=== PATIENT | female | born 1960 | race Caucasian/White ===

== ENCOUNTER → 2018-09-12 | Outpatient (CLI) | payer MEDICARE, MEDICAID ==
[~2018-09-12] MED LIST: ACET325T49 PO; ARIP2TAB11 PO; ASPI-983 PO; ATOR80TA76 PO; BENZ200C51 PO; BUTA1CAP41 PO; CALC-250 PO; CARV25TA PO; CITA-105 PO; FLUT1DIS26 IH; FURO20TA4 PO; GABA-486 PO; IBUP-1780 PO; INSU100I29 SQ; INSU100V5 SQ; IPRA3AMP19 IH; LISI-552 PO; LISI2.5T PO; MAGNESIUM PO; METF500T8 PO; MTF500T PO; OMG1KC PO; POTA20TA8 PO; POTASSIUM PO; TICA90TA PO; TRZ100T PO; VORT20TA PO
== END ==
LOC: CARD 12:48
PROVIDERS: ATTEND Physician Assistant
DX: I25.10 Atherosclerotic heart disease of native coronary artery without angina pectoris (principal); R07.89 Other chest pain; E11.9 Type 2 diabetes mellitus without complications; I10 Essential (primary) hypertension; E78.5 Hyperlipidemia, unspecified
CPT/HCPCS: 93306

== ENCOUNTER → 2020-12-10 | Outpatient (CLI) | payer MEDICARE, MEDICAID ==
[~2020-12-10] MED LIST changes: -ARIP2TAB11 PO; +ARIP2TAB20 PO; +ASPI-1238 PO; -ASPI-983 PO; -LISI-552 PO; +LISI20TA26 PO; +METF-865 PO; -METF500T8 PO
--- NOTE | 2020-12-10 15:19 | Diagnostic Imaging Report ---
PROCEDURE: CT head without contrast. TECHNIQUE: Multiple contiguous axial images were obtained through the brain without the use of intravenous contrast. Auto Exposure Controls were utilized during the CT exam to meet ALARA standards for radiation dose reduction. INDICATION: Drooling and dysphasia "left eye issues". COMPARISON: Head CT performed in 2014 as well as correlated with brain MRI performed in 2015. FINDINGS: There is no intracerebral hemorrhage hydrocephalus, edema, mass, mass effect nor evidence for an elevation of the intracerebral pressures. The mastoids and middle ear cavities are clear. The calvarium is unremarkable. The paranasal sinuses are clear. Some rightward nasal septal spurring and deviation as well as alejandrina bullosa formation in the left middle nasal turbinate, chronic. The paranasal sinuses, themselves, are clear. Orbital contents appear symmetric, stable and unremarkable. IMPRESSION: Stable normal CT head. Dictated by: Dictated on workstation # [id number]
== END ==
LOC: RAD 14:15
PROVIDERS: ATTEND Nurse Practitioner Family
DX: R13.10 Dysphagia, unspecified (principal)
CPT/HCPCS: 70450

== ENCOUNTER → 2020-12-24 | Outpatient (CLI) | payer MEDICARE, MEDICAID ==
--- NOTE | 2020-12-24 14:59 | Diagnostic Imaging Report ---
INDICATION: Dysphagia. EXAMINATION: Procedure was performed in conjunction with Speech Pathology. Video fluoroscopy was performed during the swallowing of barium in multiple consistencies. A total of 2 minutes and 34 seconds of fluoroscopic time was utilized. Patient ingested thin liquid as well as nectar, honey, puree and mechanical soft consistency. Patient also ingested ground meat and cracker consistency. There was an episode of deep laryngeal penetration during the swallowing of thin liquid. No aspiration was observed. There is moderate vallecular residue noted with all consistencies with difficulty clearing. IMPRESSION: Single episode of penetration with thin liquid. No aspiration was observed. A moderate vallecular residue is noted. Dictated by: Dictated on workstation # [id number]
== END ==
LOC: RAD 09:25
PROVIDERS: ATTEND Surgery
DX: R13.10 Dysphagia, unspecified (principal)
CPT/HCPCS: 74230

== ENCOUNTER 2021-02-18 09:59 | Emergency (ER) | payer MEDICARE, MEDICAID ==
[~2021-02-18] VITALS: Ht 165 cm; Wt 61.2 kg
--- NOTE | 2021-02-18 10:41 | ED Upper Extremity ---
General Chief Complaint: Trauma-Non Activation Stated Complaint: FELL AT HOME/ PAIN IN LEFT SHOULDER Nursing Triage Note: pt reports going outside on her front porch last evening when she fell down two steps and onto the concrete. pt denies loc or hitting head. pt does have abrasions to bridge of nose and left cheek. pt is unsure how she aquired these abrasions. denies having her glasses on at time of fall. pt reports left shoulder pain, rib pain, knee pain, and pain when taking a breath. Nursing Sepsis Screen: No Definite Risk Source: patient Exam Limitations: no limitations History of Present Illness Date Seen by Provider: Feb 18, 2021 Time Seen by Provider: 10:30 Initial Comments Patient is a 60-year-old female who presents to the emergency department today with a chief complaint of left shoulder pain and left sided chest discomfort after a fall last night off her porch. Patient states that she thinks she misse d stepped and fell approximately 2 steps off of her porch onto the concrete below. She did not hit her head or have a loss of consciousness. Patient is complaining primarily of left proximal shoulder pain. She states it hurts to AB duct and extend her left shoulder. Patient denies any numbness tingling or weakness to the left hand. She denies pain to the hand, pain to the wrist pain to the forearm or elbow. She states she is also having pain with deep breath in her left lateral chest. She does have a cough. No recent fevers or chills. No other complaints of illness or injury. All other review of systems reviewed and negative except as stated above. Location Injury Occurred: front porch Onset: yesterday Severity: severe Pain/Injury Location: left shoulder Method of Injury: fell Modifying Factors: Improves With Immobilization Allergies and Home Medications Allergies Coded Allergies: Tetanus Vaccines & Toxoid (Verified Adverse Reaction, Unknown, 05/25/14) ciprofloxacin (Verified Adverse Reaction, Unknown, 05/25/14) lovastatin (Verified Adverse Reaction, Unknown, 07/10/13) Home Medications Acetaminophen 325 Mg Tablet, 650 MG PO Q4H PRN for MILD PAIN Prescribed by: LUIGI ERAZO on 06/27/15814 Aripiprazole 2 Mg Tablet, 2 MG PO DAILY, (Reported) Aspirin 81 Mg Tablet.dr, 81 MG PO DAILY Prescribed by: LUIGI ERAZO on 06/27/15814 Atorvastatin Calcium 80 Mg Tablet, 80 MG PO HS Prescribed by: LUIGI ERAZO on 06/27/15814 Benzonatate 200 Mg Capsule, 200 MG PO TID PRN for COUGH, (Reported) Carvedilol 25 Mg Tablet, 25 MG PO BID, (Reported) Cholecalciferol 5,000 Unit Capsule, 5,000 UNIT PO DAILY, (Reported) Furosemide 20 Mg Tablet, 20 MG PO DAILY PRN for PRN, (Reported) Gabapentin 100 Mg Capsule, 100 MG PO DAILY PRN for SEVERE HEADACHE, (Reported) NEW MED: HAS NOT BEEN PICKED UP YET; FILLED 06/24/15 Insulin Detemir 100 Unit/1 Ml Insuln.pen, 20 UNITS SQ BID, (Reported) Lisinopril 20 Mg Tablet, 40 MG PO DAILY Prescribed by: LUIGI ERAZO on 06/27/15814 Metformin HCl 500 Mg Tab.er.24h, 1,000 MG PO BID, (Reported) Equality 3 Polyunsat Fatty Acids 1,000 Mg Cap, 1,000 MG PO BID WITH MEALS Prescribed by: LUIGI ERAZO on 06/27/15814 Potassium Chloride 20 Meq Tab.er.prt, 20 MEQ PO DAILY@0700 Prescribed by: LUIGI ERAZO on 06/27/15814 Ticagrelor 90 Mg Tablet, 90 MG PO BID Prescribed by: LUIGI ERAZO on 06/27/15814 Vortioxetine Hydrobromide 20 Mg Tablet, 20 MG PO DAILY, (Reported) LAST FILLED 05/15/15 [Potassium&Magnesium] , 250 MG PO DAILY, (Reported) Patient Home Medication List Home Medication List Reviewed: Yes Review of Systems Constitutional: see HPI EENTM: no symptoms reported Respiratory: cough Cardiovascular: no symptoms reported Gastrointestinal: no symptoms reported Genitourinary: no symptoms reported Musculoskeletal: joint pain (Left shoulder pain) Skin: no symptoms reported All Other Systems Reviewed Negative Unless Noted: Yes Past Rtegdbd-Sskxpp-Jfuocr Hx Patient Social History Alcohol Use: Denies Use Drug of Choice: Marijuana-daily Smoking Status: Current Everyday Smoker Type Used: Cigarettes Recent Infectious Disease Expo: No Recent Hopitalizations: No Immunizations Up To Date Tetanus Booster (TDap): Unknown PED Vaccines UTD: Yes Date of Pneumonia Vaccine: Jul 04, 2013 Date of Influenza Vaccine: Jun 15, 2015 Seasonal Allergies Seasonal Allergies: No Past Medical History Surgeries: Yes Gallbladder, Orthopedic, Tubal Ligation Respiratory: Yes Pneumonia, COPD Cardiac: Yes (PRE-ECLAMPSIA, CHF) Hypertension Neurological: Yes (Borrego's palsy, tardive dyskinesia) Stroke Reproductive Disorders: No (no menses this yr; very irregular for yrs) Female Reproductive Disorders: Endometriosis Sexually Transmitted Disease: No HIV/AIDS: No Gastrointestinal: No Musculoskeletal: No (collar bone) Fractures Endocrine: Yes (Type II) Diabetes, Insulin dep HEENT: No Loss of Vision: Denies Hearing Impairment: Denies Cancer: No Psychosocial: Yes ("hate Trazadone so use Marijuana") Sleep Difficulties, Anxiety, Depression Integumentary: No Blood Disorders: No Adverse Reaction/Blood Tranf: No Family Medical History Cardiovascular disease 19 FATHER G8 BROTHER G8 SISTER FH: multiple myeloma Physical Exam Vital Signs Vital Signs - First Documented 02/18/21 10:05 Temp 35.0 Pulse 86 Resp 12 B/P (MAP) 136/92 (107) Pulse Ox 96 Capillary Refill : Less Than 3 Seconds Height, Weight, BMI Height: 5'5.00" Weight: 154lbs. 8.0oz. 70.969944my; 22.00 BMI Method:Stated General Appearance: WD/WN, no apparent distress HEENT: PERRL/EOMI Neck: normal inspection Cardiovascular: regular rate, rhythm Respiratory: chest non-tender, lungs clear, normal breath sounds, no respi ratory distress Gastrointestinal: non tender, soft Back: normal inspection Shoulder: normal inspection, limited ROM, pain, soft tissue tenderness (Anterior and lateral left shoulder) Elbow/Forearm: normal inspection, non-tender, no evidence of injury, normal ROM, Right Wrist: Yes normal inspection, Yes non-tender, Yes no evidence of injury, Yes normal ROM Hand: normal inspection, non-tender, no evidence of injury, normal ROM Neurologic/Psychiatric: alert, normal mood/affect, oriented x 3 Progress/Results/Core Measures Results/Orders My Orders Orders - PEE DUARTE MD Shoulder, Left, 3 Views (02/18/21 10:36) Chest 1 View, Ap/Pa Only (02/18/21 10:41) Vital Signs/I&O 02/18/21 10:05 Temp 35.0 Pulse 86 Resp 12 B/P (MAP) 136/92 (107) Pulse Ox 96 Blood Pressure Mean: 107 Diagnostic Imaging Diagonstic Imaging: Xray Comments [facility], [place] NAME: ITALIA LEMONS [facility] REC#: [id number] PT STATUS: REG ER : 1960 PHYSICIAN: PEE DUARTE MD ADMIT DATE: 02/18/21/ER Draft Date of Exam:02/18/21 SHOULDER, LEFT, 3 VIEWS INDICATION: Left shoulder pain after falling down stairs. FINDINGS: 3 views. The glenohumeral joint is in good alignment. Articulating surfaces are smooth. AC joint shows good alignment. There is distal clavicular fracture present without significant displacement. IMPRESSION: Distal left clavicular fracture without separation of the AC joint. Glenohumeral joint appears normal. Dictated on workstation # [id number] Dict: 02/18/21 1107 Trans: 02/18/21 1110 [id number] Interpreted by: RICARDO PINZON MD Electronically signed by: [facility] [place] [place] NAME: ITALIA LEMONS [facility] REC#: [id number] PT STATUS: REG ER : 1960 PHYSICIAN: PEE DUARTE MD ADMIT DATE: 02/18/21/ER Signed Date of Exam:02/18/21 CHEST 1 VIEW, AP/PA ONLY INDICATION: Chest pain. Portable chest 11:05 AM FINDINGS: Heart size and pulmonary vascularity are normal. Lungs are clear. There are no effusions or pneumothoraces. IMPRESSION: Negative chest. Dictated by: Dictated on workstation # [id number] Dict: 02/18/21 1106 Trans: 02/18/21 1108 [id number] Interpreted by: DAISHA LAMBERT MD Electronically signed by: DIASHA LAMBERT MD 02/18/21 110 Departure Impression Primary Impression: Closed left clavicular fracture Qualified Codes: S42.035A - Nondisplaced fracture of lateral end of left clavicle, initial encounter for closed fracture Disposition: 01 HOME, SELF-CARE Condition: Stable Departure-Patient Inst. Decision time for Depature: 11:38 Referrals: [facility] (PCP/Family) Primary Care Physician SHARA FULLER MD Patient Instructions: Clavicle Fracture Add. Discharge Instructions: ,Wear the sling until you follow-up with [facility] or with Dr. Fuller. You may have to wear the sling for 4 to 6 weeks. I have given you the contact information for Dr. FULLER you should call the orthopedic clinic on Sunday for a follow-up appointment. Take the hydrocodone 1 pill every 4-6 hours as needed for pain. You can alternate this medication with [id number] Tylenol. Do not take Tylenol with the hydrocodone. Come back to the emergency room for any increased pain that is not controlled by the pain medicine, fever, swelling or any other emergent concerning symptoms. Scripts Hydrocodone/Acetaminophen (Hydrocodone-Acetamin 5-325 mg) 1 Each Tablet 1 TAB PO Q6H PRN for PAIN-MODERATE (5-7), #12 TAB Prov: PEE DUARTE MD 02/18/21 PEE DUARTE MD Feb 18, 2021 10:41
--- NOTE | 2021-02-18 11:07 | Diagnostic Imaging Report ---
INDICATION: Chest pain. Portable chest 11:05 AM FINDINGS: Heart size and pulmonary vascularity are normal. Lungs are clear. There are no effusions or pneumothoraces. IMPRESSION: Negative chest. Dictated by: Dictated on workstation # [id number]
--- NOTE | 2021-02-18 11:10 | Diagnostic Imaging Report ---
INDICATION: Left shoulder pain after falling down stairs. FINDINGS: 3 views. The glenohumeral joint is in good alignment. Articulating surfaces are smooth. AC joint shows good alignment. There is distal clavicular fracture present without significant displacement. IMPRESSION: Distal left clavicular fracture without separation of the AC joint. Glenohumeral joint appears normal. Dictated by: Dictated on workstation # [id number]
[2021-02-18] MEDS ORDERED: ACHD5005 PO (11:40)
[2021-02-18 11:46] VITALS: BP 133/72
== END 2021-02-18 11:46 | disposition home or self-care (01) ==
LOC: EDUNIT# 09:59 → ER 10:03
DX: S42.032A Displaced fracture of lateral end of left clavicle, initial encounter for closed fracture (principal); I11.0 Hypertensive heart disease with heart failure; I50.9 Heart failure, unspecified; E11.9 Type 2 diabetes mellitus without complications; J44.9 Chronic obstructive pulmonary disease, unspecified; F41.9 Anxiety disorder, unspecified; F32.9 Major depressive disorder, single episode, unspecified; F17.210 Nicotine dependence, cigarettes, uncomplicated; Z79.82 Long term (current) use of aspirin; Z79.4 Long term (current) use of insulin; Z79.899 Other long term (current) drug therapy; W17.89XA Other fall from one level to another, initial encounter; Y92.018 Other place in single-family (private) house as the place of occurrence of the external cause
CPT/HCPCS: 71045; 73030

== ENCOUNTER 2021-04-03 09:34 | Emergency (ER) | payer MEDICARE, MEDICAID ==
[~2021-04-03] VITALS: Ht 165 cm; Wt 59.0 kg
[~2021-04-03 09:34] MED LIST changes: +ACHD5005 PO
[2021-04-03] MEDS ORDERED: TETANUS IMMUNE GLOBULIN 250 UNIT/ML SYR IM ONE (10:15)
--- NOTE | 2021-04-03 11:08 | ED Fall/Injury ---
General Chief Complaint: Trauma-Non Activation Stated Complaint: FALL/L SIDE RIB PAIN Nursing Triage Note: AMB TO ROOM PATIENT REPORTS THAT SHE FELL ON HIT L RIBS, L SIDE OF HER FACE C/O NECK PAIN ABRASION TO R KNEE AND R FOREARM. 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 C/O PAIN TO RIGHT FOREHEAD C/O POSTERIOR NECK PAIN C/O PAIN TO LEFT RIBS NO SHORTNESS OF BREATH, BUT HURTS TO BREATHE OR COUGH OR MOVE. RATES PAIN 2/10 AT REST, 8/10 WITH COUGH OR MOVEMENT C/O NAUSEA, NO VOMITING NO ABDOMINAL PAIN NO BACK PAIN NO PARESTHESIAS OR MOTOR DEFICITS HAS ABRASION TO RIGHT FOREARM AND RIGHT KNEE--DENIES BONY PAIN TO THESE AREAS. DENIES EXTREMITY PAIN DENIES DIZZINESS DENIES VISION CHANGES, BUT IS SUPPOSED TO WEAR GLASSES, BUT ARRIVES WITHOUT THEM. HAS NOT SOUGHT CARE UNTIL TODAY SYMPTOMS NO DIFFERENT TODAY HAS NOT TAKEN ANYTHING FOR PAIN PT SMOKES 1 1/2 PPD PT HAS COPD, BUT DOES NOT TAKE ANY MEDICATIONS FOR IT HAS HISTORY OF CAD WITH STENT X 1 PT IS DIABETIC, DOES NOT CHECK BLOOD SUGAR PCP: [facility] [place] Allergies and Home Medications Allergies Coded Allergies: Tetanus Vaccines & Toxoid (Verified Adverse Reaction, Unknown, 05/25/14) ciprofloxacin (Verified Adverse Reaction, Unknown, 05/25/14) lovastatin (Verified Adverse Reaction, Unknown, 07/10/13) Home Medications Acetaminophen 325 Mg Tablet, 650 MG PO Q4H PRN for MILD PAIN Prescribed by: LUIGI ERAZO on 06/27/15814 Aripiprazole 2 Mg Tablet, 2 MG PO DAILY, (Reported) Aspirin 81 Mg Tablet.dr, 81 MG PO DAILY Prescribed by: LUIGI ERAZO on 06/27/15814 Atorvastatin Calcium 80 Mg Tablet, 80 MG PO HS Prescribed by: LUIGI ERAZO on 06/27/15814 Benzonatate 200 Mg Capsule, 200 MG PO TID PRN for COUGH, (Reported) Carvedilol 25 Mg Tablet, 25 MG PO BID, (Reported) Cholecalciferol 5,000 Unit Capsule, 5,000 UNIT PO DAILY, (Reported) Cyclobenzaprine HCl 10 Mg Tablet, 10 MG PO Q8H PRN for SPASMS Prescribed by: AZUCENA FRANKLIN on 04/03/21 1210 Furosemide 20 Mg Tablet, 20 MG PO DAILY PRN for PRN, (Reported) Gabapentin 100 Mg Capsule, 100 MG PO DAILY PRN for SEVERE HEADACHE, (Reported) NEW MED: HAS NOT BEEN PICKED UP YET; FILLED 06/24/15 Hydrocodone/Acetaminophen 1 Each Tablet, 1 TAB PO Q6H PRN for PAIN-MODERATE (5- 7) Prescribed by: PEE DUARTE on 02/18/21 1141 Insulin Detemir 100 Unit/1 Ml Insuln.pen, 20 UNITS SQ BID, (Reported) Lisinopril 20 Mg Tablet, 40 MG PO DAILY Prescribed by: LUIGI ERAZO on 06/27/15 08 Metformin HCl 500 Mg Tab.er.24h, 1,000 MG PO BID, (Reported) Naproxen 500 Mg Tablet.dr, 500 MG PO BID Prescribed by: AZUCENA FRANKLIN on 04/03/21 1210 Nitrofurantoin Monohyd/M-Cryst 100 Mg Capsule, 1 TAB PO BID Prescribed by: AZUCENA FRANKLIN on 04/03/21 1212 [place] 3 Polyunsat Fatty Acids 1,000 Mg Cap, 1,000 MG PO BID WITH MEALS Prescribed by: LUIGI ERAZO on 06/27/15814 Potassium Chloride 20 Meq Tab.er.prt, 20 MEQ PO DAILY@0700 Prescribed by: LUIGI ERAZO on 06/27/15 08 Ticagrelor 90 Mg Tablet, 90 MG PO BID Prescribed by: LUIGI ERAZO on 06/27/15814 Tramadol HCl 50 Mg Tablet, 50 MG PO Q4H Prescribed by: AZUCENA FRANKLIN on 04/03/21 1210 Vortioxetine Hydrobromide 20 Mg Tablet, 20 MG PO DAILY, (Reported) LAST FILLED 05/15/15 [Potassium&Magnesium] , 250 MG PO DAILY, (Reported) Patient Home Medication List Home Medication List Reviewed: Yes Review of Systems Review of Systems Constitutional: no symptoms reported Eyes: No Symptoms Reported Ears, Nose, Mouth, Throat: no symptoms reported Respiratory: see HPI Cardiovascular: see HPI Gastrointestinal: see HPI; No abdominal pain; nausea; No vomiting Genitourinary: no symptoms reported Musculoskeletal: see HPI Skin: see HPI Psychiatric/Neurological: No Symptoms Reported; Denies Headache, Denies Numbness, Denies Paresthesia, Denies Seizure, Denies Tingling, Denies Weakness Past Kabombu-Nnkrtm-Nzvmre Hx Patient Social History Tobacco Use?: Yes (SMOKES 1 1/2 PPD) Tobacco type used: Cigarettes Substance use?: No Alcohol Use?: No Immunizations Up To Date Tetanus Booster (TDap): Unknown PED Vaccines UTD: Yes Seasonal Allergies Seasonal Allergies: No Past Medical History Surgery/Hospitalization HX: BILATERAL TUBAL LIGATION Surgeries: Yes Gallbladder, Orthopedic, Tubal Ligation Respiratory: Yes Pneumonia, COPD Cardiac: Yes (PRE-ECLAMPSIA, CHF) Hypertension Neurological: Yes (Borrego's palsy, tardive dyskinesia) Stroke Reproductive Disorders: No (no menses this yr; very irregular for yrs) Female Reproductive Disorders: Endometriosis Sexually Transmitted Disease: No HIV/AIDS: No Gastrointestinal: No Musculoskeletal: No (collar bone) Fractures Endocrine: Yes (Type II) Diabetes, Insulin dep HEENT: No Loss of Vision: Denies Hearing Impairment: Denies Cancer: No Psychosocial: Yes ("hate Trazadone so use Marijuana") Sleep Difficulties, Anxiety, Depression Integumentary: No Blood Disorders: No Adverse Reaction/Blood Tranf: No Family Medical History Cardiovascular disease 19 FATHER G8 BROTHER G8 SISTER FH: multiple myeloma Physical Exam Vital Signs Vital Signs - First Documented 04/03/21 04/03/21 10:21 10:50 Temp 36.7 Pulse 81 Resp 18 B/P (MAP) 130/90 (103) Pulse Ox 90 O2 Delivery Room Air O2 Flow Rate 2.00 Capillary Refill : Less Than 3 Seconds Height, Weight, BMI Height: 5'5.00" Weight: 154lbs. 8.0oz. 70.939208pl; 21.00 BMI Method:Stated General Appearance: no apparent distress, thin, other (DIRTY, UNKEMPT, MULTIPLE HOLES / CIGARETTE LANDEROS IN CLOTHING. ) HEENT: PERRL/EOMI, normal ENT inspection, TMs normal, pharynx normal, other (POOR DENTITION; MINOR ABRASION TO RIGHT FOREHEAD WITH TENDERNESS) Neck: tender lateral, tender midline Cardiovascular: regular rate, rhythm, no murmur Respiratory: normal breath sounds, no respiratory distress, other (TENDERNESS TO LEFT ANTERIOR AND LATERAL CHEST/RIB AREA. NO EXTERNAL EVIDENCE OF TRAUMA. NO CREPITANCE OR SUB Q AIR. ) Gastrointestinal: normal bowel sounds, non tender, soft Back: normal inspection, no CVA tenderness, no vertebral tenderness Extremities: normal range of motion, non-tender, no pedal edema, no calf tenderness, normal capillary refill, other (MINOR ABRASION TO RIGHT MID FOREARM AND RIGHT KNEE. NO BONY TENDERNESS TO EXTREMITIES) Neurologic/Psychiatric: contract programmer II-XII nml as tested, no motor/sensory deficits, alert, normal mood/affect, oriented x 3 Skin: normal color, warm/dry Charlie Coma Score Best Eye Response: (4) Open Spontaneously Best Verbal Response: (5) Oriented Best Motor Response: (6) Obeys Commands Charlie Total: 15 Progress/Results/Core Measures Results/Orders Lab Results Laboratory Tests Test 04/03/21 10:01 04/03/21 11:04 04/03/21 11:15 Range/Units B-Type Natriuretic Peptide 12.6 <100.0 PG/ML White Blood Count 9.6 4.3-11.0 10^3/uL Red Blood Count 4.52 3.80-5.11 10^6/uL Hemoglobin 14.3 11.5-16.0 g/dL Hematocrit 42 35-52 % Mean Corpuscular Volume 94 80-99 fL Mean Corpuscular Hemoglobin 32 25-34 pg Mean Corpuscular Hemoglobin Concent 34 32-36 g/dL Red Cell Distribution Width 13.6 10.0-14.5 % Platelet Count 160 130-400 10^3/uL Mean Platelet Volume 11.4 9.0-12.2 fL Immature Granulocyte % (Auto) 0 % Neutrophils (%) (Auto) 63 42-75 % Lymphocytes (%) (Auto) 27 12-44 % Monocytes (%) (Auto) 8 0-12 % Eosinophils (%) (Auto) 2 0-10 % Basophils (%) (Auto) 1 0-10 % Neutrophils # (Auto) 6.1 1.8-7.8 10^3/uL Lymphocytes # (Auto) 2.6 1.0-4.0 10^3/uL Monocytes # (Auto) 0.7 0.0-1.0 10^3/uL Eosinophils # (Auto) 0.1 0.0-0.3 10^3/uL Basophils # (Auto) 0.1 0.0-0.1 10^3/uL Immature Granulocyte # (Auto) 0.0 0.0-0.1 10^3/uL Sodium Level 144 135-145 MMOL/L Potassium Level 3.8 3.6-5.0 MMOL/L Chloride Level 105 98-107 MMOL/L Carbon Dioxide Level 27 21-32 MMOL/L Anion Gap 12 5-14 MMOL/L Blood Urea Nitrogen 11 7-18 MG/DL Creatinine 0.75 0.60-1.30 MG/DL Estimat Glomerular Filtration Rate > 60 BUN/Creatinine Ratio 15 Glucose Level 147 H 70-105 MG/DL Calcium Level 9.0 8.5-10.1 MG/DL Corrected Calcium 9.1 8.5-10.1 MG/DL Total Bilirubin 0.6 0.1-1.0 MG/DL Aspartate Amino Transf (AST/SGOT) 11 5-34 U/L Alanine Aminotransferase (ALT/SGPT) 14 0-55 U/L Alkaline Phosphatase 104 40-136 U/L Troponin I < 0.028 <0.028 NG/ML Total Protein 6.2 L 6.4-8.2 GM/DL Albumin 3.9 3.2-4.5 GM/DL Urine Color YELLOW Urine Clarity CLEAR Urine pH 5.5 5-9 Urine Specific [place] >=1.030 1.016-1.022 Urine Protein TRACE H NEGATIVE Urine Glucose (UA) NEGATIVE NEGATIVE Urine Ketones NEGATIVE NEGATIVE Urine Nitrite POSITIVE H NEGATIVE Urine Bilirubin NEGATIVE NEGATIVE Urine Urobilinogen 0.2 < = 1.0 MG/DL Urine Leukocyte Esterase TRACE H NEGATIVE Urine RBC (Auto) NEGATIVE NEGATIVE Urine RBC NONE /HPF Urine WBC 0-2 /HPF Urine Squamous Epithelial Cells 10-25 H /HPF Urine Crystals NONE /LPF Urine Bacteria LARGE H /HPF Urine Casts NONE /LPF Urine Mucus NEGATIVE /LPF Urine Yeast FEW H /HPF Urine Culture Indicated YES My Orders Orders - AZUCENA FRANKLIN DO Tetanus Immune Globulin Inj (Baytet Inje (04/03/21 10:15) Ct Head/Face/Cervical Wo (04/03/21 10:01) Chest 1 View, Ap/Pa Only (04/03/21 10:01) BNP (04/03/21 10:01) Cbc With Automated Diff (04/03/21 10:01) Comprehensive Metabolic Panel (04/03/21 10:01) Ua Culture If Indicated (04/03/21 10:01) Ct Chest/Abdomen/Pelvis W (04/03/21 10:01) Troponin I (04/03/21 10:01) Ed Iv/Invasive Line Start (04/03/21 10:01) O2 (04/03/21 10:01) Monitor-Rhythm Ecg Trace Only (04/03/21 10:01) Urine Culture (04/03/21 11:15) Iohexol Injection (Omnipaque 350 Mg/Ml 1 (04/03/21 11:45) Received Contrast (Hold Metformin- Contr (04/03/21 11:45) Ns (Ivpb) (Sodium Chloride 0.9% Ivpb Bag (04/03/21 11:45) Ketorolac Injection (Toradol Injection) (04/03/21 12:15) Medications Given in ED Current Medications Medications Dose Ordered Sig/Veronica Route Start Time Stop Time Status Last Admin Dose Admin Iohexol 100 ml ONCE ONCE IV 04/03/21 11:45 04/03/21 11:46 DC 04/03/21 11:43 100 ML Ketorolac Tromethamine 30 mg ONCE ONCE IVP 04/03/21 12:15 04/03/21 12:16 DC 04/03/21 12:17 30 MG Sodium Chloride 100 ml ONCE ONCE IV 04/03/21 11:45 04/03/21 11:46 DC 04/03/21 11:43 80 ML Tetanus Immune Globulin 250 unit ONCE ONCE IM 04/03/21 10:15 04/03/21 10:16 DC 04/03/21 10:44 250 UNIT Vital Signs/I&O 04/03/21 04/03/21 04/03/21 10:21 10:50 12:51 Temp 36.7 Pulse 81 90 Resp 18 18 B/P (MAP) 130/90 (103) 151/96 Pulse Ox 90 90 92 O2 Delivery Room Air Nasal Cannula Room Air O2 Flow Rate 2.00 Blood Pressure Mean: 103 Progress Progress Note : Progress Note MARKED DELAY ON OBTAINING IV AND LAB, AND ALSO WITH OBTAINING RADIOLOGICAL STUDIES DUE TO THIS Diagnostic Imaging Comments CXR--NO ACUTE PROCESS, PER RADIOLOGIST REPORT AT 1158 CT HEAD/MAXILLOFACIALS/CERVICAL SPINE--PER RADIOLOGIST REPORT AT 1158 FINDINGS: CT head: No large acute territorial ischemia, mass, or hemorrhage. No midline shift or mass effect. The ventricles, cortical sulci, and basilar cisterns are patent and unremarkable. The calvarium is intact. A small amount of retained secretions are seen in the antrum of the left maxillary sinus. Retained secretions are seen in the left ethmoid sinuses. Mastoid effusion is seen in the right. CT face: No acute facial fractures are visualized. The mandible, zygomatic arches, and pterygoid plates are intact. The bilateral TMJ demonstrate normal articulation. No nasal bone fractures. The bony nasal septum is deviated to the right without fracture. Rita bullosa of the left middle turbinate is noted. The globes and orbits are symmetric and unremarkable. No evidence of orbital rim fracture. Scattered dental caries are noted. CT cervical spine: No acute fracture or dislocation is seen in the cervical spine. No focal osseous lesions. Vertebral body heights are well-maintained. The craniocervical junction is well-maintained. Mild degenerative changes are seen in the cervical spine with disc osteophyte complexes and uncovertebral arthropathy. Soft tissues of the neck are unremarkable. IMPRESSION: 1. No hemorrhage or focal intra-axial mass. No CT evidence of large acute territorial ischemia. 2. No acute fracture or dislocation in the cervical spine. 3. No acute facial fractures. 4. Small right mastoid effusion with small amount of retained secretions in the left maxillary and ethmoid sinuses. CT CHEST/ABDOMEN/PELVIS--PER RADIOLOGIST REPORT AT 1206 FINDINGS: CT CHEST: The heart size is within normal limits. Small pericardial effusion is present. The thoracic aorta is unremarkable without evidence of aneurysm or dissection. There is no mediastinal, hilar, or axillary lymphadenopathy. The lungs demonstrate no pulmonary nodules or masses. There are no focal areas of consolidation. Small amount of dependent atelectasis is seen in the lung bases. No central endobronchial obstructing lesions are identified. There are no pleural effusions or pneumothorax. The osseous structures demonstrate no acute abnormalities. CT ABDOMEN AND PELVIS: The abdominal aorta has a normal appearance without evidence of dissection or aneurysm. There is calcified aortic and iliac atherosclerotic plaque. The liver, spleen, pancreas, adrenal glands, and kidneys have a normal appearance. Simple cortical cyst is seen in the left kidney. There is no pathologically enlarged mesenteric or retroperitoneal adenopathy. The bowel loops are nondilated. There is no free fluid or free air. The osseous structures demonstrate no acute abnormalities. Ureters and bladder have a normal appearance. There is no free air, loculated collection, or adenopathy in the pelvis. IMPRESSION: 1. No acute abnormality in the chest, abdomen and pelvis. 2. Small pericardial effusion. Reviewed: Reviewed by Me Departure Impression Primary Impression: Fall involving bed as cause of accidental injury in home as place of occurrence Additional Impressions: Minor head injury without loss of consciousness CERVICAL SPINE STRAIN Contusion of left chest wall Abrasions of multiple sites TETANUS IMMUNOGLOBULIN GIVEN UTI (urinary tract infection) Disposition: HOME, SELF-CARE Condition: Stable Departure-Patient Inst. Decision time for Depature: 12:05 Referrals: [facility] (PCP/Family) Primary Care Physician Patient Instructions: Abrasions ED, Bruised Rib (DC), CHEST CONTUSION, Minor Head Injury, Adult ED, Neck Sprain (DC), Tetanus Immune Globulin (Human), Urinary Tract Infection, Adult ED Add. Discharge Instructions: ALTERNATE ICE AND HEAT TO SORE AREAS AT 20 MINUTE INTERVALS ACTIVITIES TOLERATED FOLLOW UP WITH [facility] IN 1 WEEK IF NO BETTER All discharge instructions reviewed with patient and/or family. Voiced understanding. Scripts Nitrofurantoin Monohyd/M-Cryst (Macrobid 100 mg Capsule) 100 Mg Capsule 1 TAB PO BID, #20 CAP Prov: AZUCENA FRANKLIN DO 04/03/21 Tramadol HCl (Ultram) 50 Mg Tablet 50 MG PO Q4H for Pain, #20 TAB Prov: AZUCENA FRANKLIN DO 04/03/21 Naproxen (Naproxen) 500 Mg Tablet.dr 500 MG PO BID, #20 TAB Prov: AZUCENA FRANKLIN DO 04/03/21 Cyclobenzaprine HCl (Cyclobenzaprine HCl) 10 Mg Tablet 10 MG PO Q8H PRN for SPASMS, #15 TAB 0 Refills Prov: AZUCENA FRANKLIN DO 04/03/21 AZUCENA FRANKLIN DO Apr 03, 2021 11:08
[2021-04-03 11:12] LABS: BASOPHILS # (AUTO) 0.1 10^3/uL (0.0-0.1); BASOPHILS % (AUTO) 1 % (0-10); EOSINOPHILS # (AUTO) 0.1 10^3/uL (0.0-0.3); EOSINOPHILS % (AUTO) 2 % (0-10); HEMATOCRIT 42 % (35-52); HEMOGLOBIN 14.3 g/dL (11.5-16.0); LYMPHOCYTES # (AUTO) 2.6 10^3/uL (1.0-4.0); LYMPHOCYTES % (AUTO) 27 % (12-44); MEAN CORPUSCULAR HEMOGLOBIN 32 pg (25-34); MEAN CORPUSCULAR HGB CONC 34 g/dL (32-36); MEAN CORPUSCULAR VOLUME 94 fL (80-99); MEAN PLATELET VOLUME 11.4 fL (9.0-12.2); MONOCYTES # (AUTO) 0.7 10^3/uL (0.0-1.0); MONOCYTES % (AUTO) 8 % (0-12); NEUTROPHILS # (AUTO) 6.1 10^3/uL (1.8-7.8); NEUTROPHILS % (AUTO) 63 % (42-75); PLATELET COUNT 160 10^3/uL (130-400); WHITE BLOOD COUNT 9.6 10^3/uL (4.3-11.0)
[2021-04-03 11:27] LABS: ALBUMIN 3.9 GM/DL (3.2-4.5); CHLORIDE 105 MMOL/L (98-107); POTASSIUM 3.8 MMOL/L (3.6-5.0); SODIUM 144 MMOL/L (135-145)
[2021-04-03 11:27] LABS: BILIRUBIN,URINE NEGATIVE (NEGATIVE); CLARITY,URINE CLEAR; COLOR,URINE YELLOW; GLUCOSE, URINE (UA) NEGATIVE (NEGATIVE); KETONES,URINE NEGATIVE (NEGATIVE); LEUKOCYTE ESTERASE ,URINE TRACE (NEGATIVE); NITRITE,URINE POSITIVE (NEGATIVE); PH,URINE 5.5 (5-9); PROTEIN,URINE TRACE (NEGATIVE)
[2021-04-03 11:30] LABS: GLUCOSE 147 MG/DL (70-105); TOTAL PROTEIN 6.2 GM/DL (6.4-8.2)
[2021-04-03 11:31] LABS: BILIRUBIN,TOTAL 0.6 MG/DL (0.1-1.0); CARBON DIOXIDE 27 MMOL/L (21-32)
[2021-04-03 11:33] LABS: ALKALINE PHOSPHATASE 104 U/L (40-136); CREATININE SERUM 0.75 MG/DL (0.60-1.30); GFR ESTIMATED > 60
[2021-04-03 11:34] LABS: BUN/CREATININE RATIO 15
[2021-04-03 11:36] LABS: ALANINE AMINOTRANSFERASE 14 U/L (0-55)
[2021-04-03 11:37] LABS: BACTERIA,URINE LARGE /HPF; WBC,URINE 0-2 /HPF
[2021-04-03 11:38] LABS: YEAST,URINE FEW /HPF
--- NOTE | 2021-04-03 11:44 | Diagnostic Imaging Report ---
EXAMINATION: Chest 1 view HISTORY: Trauma. Left rib pain. COMPARISON: 02/18/2021. FINDINGS: The lung volumes are normal. No focal consolidation is seen. No large pleural effusion or pneumothorax is seen. The cardiomediastinal silhouette is normal in size and contour. No acute osseous abnormality is seen. IMPRESSION: 1. No acute pleuroparenchymal process. Dictated by: Dictated on workstation # [id number]
[2021-04-03] MEDS ORDERED: IOHEXOL 350 MG/ML 100 ML (OMNIPAQUE 350) VIAL IV ONE (11:45)
[2021-04-03] MEDS ORDERED: HOLD METFORMIN - RECEIVED CONTRAST 20 ML VIAL IV SCH (11:45)
[2021-04-03] MEDS ORDERED: NS 100 ML (IVPB) BAG IV ONE (11:45)
--- NOTE | 2021-04-03 11:51 | Diagnostic Imaging Report ---
PROCEDURE: CT head, face, and cervical spine without contrast. TECHNIQUE: Multiple contiguous axial images were obtained through the head, neck, and facial bones without the use of intravenous contrast. Sagittal and coronal reformations through the cervical spine and facial bones were also performed. Auto Exposure Controls were utilized during the CT exam to meet ALARA standards for radiation dose reduction. INDICATION: Fall. Scalp contusion. Head and neck pain. COMPARISON: 12/10/2020. FINDINGS: CT head: No large acute territorial ischemia, mass, or hemorrhage. No midline shift or mass effect. The ventricles, cortical sulci, and basilar cisterns are patent and unremarkable. The calvarium is intact. A small amount of retained secretions are seen in the antrum of the left maxillary sinus. Retained secretions are seen in the left ethmoid sinuses. Mastoid effusion is seen in the right. CT face: No acute facial fractures are visualized. The mandible, zygomatic arches, and pterygoid plates are intact. The bilateral TMJ demonstrate normal articulation. No nasal bone fractures. The bony nasal septum is deviated to the right without fracture. Rita bullosa of the left middle turbinate is noted. The globes and orbits are symmetric and unremarkable. No evidence of orbital rim fracture. Scattered dental caries are noted. CT cervical spine: No acute fracture or dislocation is seen in the cervical spine. No focal osseous lesions. Vertebral body heights are well-maintained. The craniocervical junction is well-maintained. Mild degenerative changes are seen in the cervical spine with disc osteophyte complexes and uncovertebral arthropathy. Soft tissues of the neck are unremarkable. IMPRESSION: 1. No hemorrhage or focal intra-axial mass. No CT evidence of large acute territorial ischemia. 2. No acute fracture or dislocation in the cervical spine. 3. No acute facial fractures. 4. Small right mastoid effusion with small amount of retained secretions in the left maxillary and ethmoid sinuses. Dictated by: Dictated on workstation # [id number]
--- NOTE | 2021-04-03 12:00 | Diagnostic Imaging Report ---
EXAMINATION: CT chest, abdomen and pelvis with intravenous contrast. TECHNIQUE: Multiple contiguous axial images were obtained through the chest, abdomen and pelvis after the uneventful administration of intravenous contrast. All CT scans use one or more of the following dose optimizing techniques: automated exposure control, MA and/or KvP adjustment based on patient size and exam type or iterative reconstruction. HISTORY: Trauma. Fall 2 days ago. Abrasions on the chest and abdomen. COMPARISON: None available. FINDINGS: CT CHEST: The heart size is within normal limits. Small pericardial effusion is present. The thoracic aorta is unremarkable without evidence of aneurysm or dissection. There is no mediastinal, hilar, or axillary lymphadenopathy. The lungs demonstrate no pulmonary nodules or masses. There are no focal areas of consolidation. Small amount of dependent atelectasis is seen in the lung bases. No central endobronchial obstructing lesions are identified. There are no pleural effusions or pneumothorax. The osseous structures demonstrate no acute abnormalities. CT ABDOMEN AND PELVIS: The abdominal aorta has a normal appearance without evidence of dissection or aneurysm. There is calcified aortic and iliac atherosclerotic plaque. The liver, spleen, pancreas, adrenal glands, and kidneys have a normal appearance. Simple cortical cyst is seen in the left kidney. There is no pathologically enlarged mesenteric or retroperitoneal adenopathy. The bowel loops are nondilated. There is no free fluid or free air. The osseous structures demonstrate no acute abnormalities. Ureters and bladder have a normal appearance. There is no free air, loculated collection, or adenopathy in the pelvis. IMPRESSION: 1. No acute abnormality in the chest, abdomen and pelvis. 2. Small pericardial effusion. Dictated by: Dictated on workstation # [id number]
[2021-04-03] MEDS ORDERED: NAPR500T8 PO (12:10)
[2021-04-03] MEDS ORDERED: TRAM-42 PO (12:10)
[2021-04-03] MEDS ORDERED: CYCL10TA9 PO (12:10)
[2021-04-03] MEDS ORDERED: NITR-65 PO (12:12)
[2021-04-03] MEDS ORDERED: KETOROLAC 30 MG/ML VIAL IVP ONE (12:15)
[2021-04-03 12:51] VITALS: BP 151/96
== END 2021-04-03 12:53 | disposition home or self-care (01) ==
LOC: EDUNIT# 09:34 → ER 09:35
DX: S16.1XXA Strain of muscle, fascia and tendon at neck level, initial encounter (principal); S20.212A Contusion of left front wall of thorax, initial encounter; S50.811A Abrasion of right forearm, initial encounter; S80.211A Abrasion, right knee, initial encounter; S00.81XA Abrasion of other part of head, initial encounter; S09.90XA Unspecified injury of head, initial encounter; N39.0 Urinary tract infection, site not specified; J44.9 Chronic obstructive pulmonary disease, unspecified; I10 Essential (primary) hypertension; F32.9 Major depressive disorder, single episode, unspecified; E11.9 Type 2 diabetes mellitus without complications; F17.210 Nicotine dependence, cigarettes, uncomplicated; Z23 Encounter for immunization; Z86.73 Personal history of transient ischemic attack (TIA), and cerebral infarction without residual deficits; Z79.4 Long term (current) use of insulin; Z79.899 Other long term (current) drug therapy; Z79.82 Long term (current) use of aspirin; W22.8XXA Striking against or struck by other objects, initial encounter
CPT/HCPCS: 36415; 70450; 70486; 71045; 71260; 72125; 74177; 80053; 81000; 83880; 84484; 85025; 87088; 93041

== ENCOUNTER 2021-04-06 20:12 | Observation (INO) | payer MEDICARE, MEDICAID ==
[~2021-04-06] VITALS: Ht 165.1 cm; Wt 58.8 kg
[~2021-04-06 20:12] MED LIST changes: +CYCL10TA9 PO; +NAPR500T8 PO; +NITR-65 PO; +TRAM-42 PO
[2021-04-06] MEDS ORDERED: D5 1/2 NS 1000 ML IV SOLUTION 1,000 ML IV ONE (20:30)
[2021-04-06 20:33] LABS: BILIRUBIN,URINE NEGATIVE (NEGATIVE); CLARITY,URINE CLEAR; COLOR,URINE YELLOW; GLUCOSE, URINE (UA) NEGATIVE (NEGATIVE); KETONES,URINE NEGATIVE (NEGATIVE); LEUKOCYTE ESTERASE ,URINE NEGATIVE (NEGATIVE); NITRITE,URINE NEGATIVE (NEGATIVE); PROTEIN,URINE NEGATIVE (NEGATIVE)
[2021-04-06 20:56] LABS: RBC,URINE 0-2 /HPF
[2021-04-06 20:57] LABS: AMORPHOUS SEDIMENT,UR RARE AMOR URATES /LPF; BACTERIA,URINE NEGATIVE /HPF
[2021-04-06 21:01] LABS: BASOPHILS % (AUTO) 0 % (0-10); EOSINOPHILS % (AUTO) 0 % (0-10); HEMATOCRIT 46 % (35-52); HEMOGLOBIN 16.1 g/dL (11.5-16.0); LYMPHOCYTES # (AUTO) 1.3 10^3/uL (1.0-4.0); LYMPHOCYTES % (AUTO) 14 % (12-44); MEAN CORPUSCULAR HEMOGLOBIN 32 pg (25-34); MEAN CORPUSCULAR HGB CONC 35 g/dL (32-36); MEAN CORPUSCULAR VOLUME 93 fL (80-99); MEAN PLATELET VOLUME 11.3 fL (9.0-12.2); MONOCYTES # (AUTO) 0.3 10^3/uL (0.0-1.0); MONOCYTES % (AUTO) 4 % (0-12); NEUTROPHILS # (AUTO) 7.4 10^3/uL (1.8-7.8); NEUTROPHILS % (AUTO) 81 % (42-75); PLATELET COUNT 162 10^3/uL (130-400); WHITE BLOOD COUNT 9.1 10^3/uL (4.3-11.0)
[2021-04-06 21:04] LABS: AMPHETAMINE SCREEN, URINE NEGATIVE (NEGATIVE); BARBITURATE SCREEN URINE NEGATIVE (NEGATIVE); BENZODIAZEPINES SCREEN URINE NEGATIVE (NEGATIVE); CANNABINOID SCREEN, URINE POSITIVE (NEGATIVE); COCAINE SCREEN URINE NEGATIVE (NEGATIVE); METHADONE STAT NEGATIVE (NEGATIVE); METHAMPHETAMINE SCREEN URINE S NEGATIVE (NEGATIVE); OPIATE SCREEN URINE NEGATIVE (NEGATIVE); OXYCODONE STAT NEGATIVE (NEGATIVE); PROPOXYPHENE STAT NEGATIVE (NEGATIVE); TRICYCLIC ANTIDEPRESSANTS SCRE NEGATIVE (NEGATIVE)
[2021-04-06 21:11] LABS: CHLORIDE 99 MMOL/L (98-107); POTASSIUM 3.9 MMOL/L (3.6-5.0); SODIUM 140 MMOL/L (135-145)
[2021-04-06 21:12] LABS: ALBUMIN 4.3 GM/DL (3.2-4.5)
[2021-04-06 21:13] LABS: AMYLASE 58 U/L (25-125); CALCIUM 9.5 MG/DL (8.5-10.1); INR 0.9 (0.8-1.4); PROTHROMBIN TIME PATIENT 12.5 SEC (12.2-14.7)
[2021-04-06 21:14] LABS: GLUCOSE 127 MG/DL (70-105)
[2021-04-06 21:15] LABS: CARBON DIOXIDE 28 MMOL/L (21-32)
[2021-04-06 21:16] LABS: BILIRUBIN,TOTAL 0.7 MG/DL (0.1-1.0)
[2021-04-06 21:18] LABS: ALKALINE PHOSPHATASE 129 U/L (40-136); CREATININE SERUM 0.66 MG/DL (0.60-1.30); GFR ESTIMATED 91
[2021-04-06 21:19] LABS: BUN/CREATININE RATIO 15
[2021-04-06 21:21] LABS: ALANINE AMINOTRANSFERASE 20 U/L (0-55); MAGNESIUM 2.2 MG/DL (1.6-2.4)
[2021-04-06 21:30] LABS: ACETAMINOPHEN < 10 UG/ML (10-30)
[2021-04-06 21:50] LABS: ERYTHROCYTE SEDIMENTATION RATE 22 MM/HR (0-30)
--- NOTE | 2021-04-06 21:55 | Diagnostic Imaging Report ---
INDICATION: Overdose. Hypoglycemia. COMPARISON: 04/03/2021. FINDINGS: Single view of the chest demonstrates clear lungs bilaterally. The heart is normal. There is no pneumothorax. The osseous structures normal. IMPRESSION: Negative chest. Dictated by: Dictated on workstation # [id number]
--- NOTE | 2021-04-06 22:03 | Diagnostic Imaging Report ---
PROCEDURE: CT head and CT cervical spine without contrast. TECHNIQUE: Multiple contiguous axial images were obtained through the brain and cervical spine without the use of intravenous contrast. Sagittal and coronal reformations through the cervical spine were then performed. Auto Exposure Controls were utilized during the CT exam to meet ALARA standards for radiation dose reduction. INDICATION: Low blood sugars. Overdose. COMPARISON: 04/03/2021 CT HEAD: Ventricles are normal in size, shape and position. There is no midline shift or mass effect. There is no hemorrhage or evidence of acute ischemia. No extraaxial fluid collection or mass is seen. There is no skull fracture. Paranasal sinuses and left mastoid are clear. There is a nonspecific effusion in the right mastoid air cell. IMPRESSION: Negative CT head. Nonspecific effusion right mastoid air cell. CT CERVICAL SPINE: Alignment is normal. There is no subluxation or fracture. Degenerative changes are seen throughout. There is no osseous lesion. Soft tissues are intact. IMPRESSION: No traumatic malalignment or fracture. Dictated by: Dictated on workstation # [id number]
[2021-04-06] MEDS ORDERED: D5 1/2 NS 1000 ML IV SOLUTION 1,000 ML IV SCH (23:15)
[2021-04-06] MEDS ORDERED: ONDANSETRON 4 MG/2 ML (SDV) Z0FRAN IV PRN (23:15)
--- NOTE | 2021-04-06 23:42 | Tele-ICU Progress Note ---
Progress Note 60F admitted with apparent intentional overdose. She was last seen by family in the morning, family came home around 1700 to find her sleeping on the couch. Around 1830 came home, was unable to awaken her and called 911. Reported to have a glucose of 34 in the field which has responded well to supplementation. She is now awake but somnolent. Just seen in ER yesterday morning after falling out of bed, treated for neck strain. From those prescriptions, missing tramadol x14, flexeril x13. - Overdose: likely on tramadol and flexeril. At this time will presume levemir as well, given initial hypoglycemia. Will monitor with q1h accuchecks and prn supplementation. However, in my experience levemir OD requires repeat glucose adminstrations. She has held since the initial. No lactic acidosis or renal insufficiency suspicious for metformin. No missing naproxen from yesterdays prescriptions. Unknown ingestion time, still at risk for progressive lethargy and intubation. Monitor in ICU overnight. Focused Exam Lactate Level 04/06/21 20:50: Lactic Acid Level 0.91 Height, Weight, BMI Height: 5'5.00" Weight: 154lbs. 8.0oz. 70.417876dl; 21.00 BMI Method:Stated Lactic Acid Level Laboratory Tests Test 04/06/21 20:50 Lactic Acid Level 0.91 MMOL/L (0.50-2.00) KINDRA BLANKENSHIP MD Apr 06, 2021 23:42
[2021-04-06] MEDS: inSUlin ASPART (NovoLOG) 1 UNIT/0.01 ML (CHARGE PER UNIT) SC SCH (23:59)
[2021-04-07] MEDS: inSUlin ASPART (NovoLOG) 1 UNIT/0.01 ML (CHARGE PER UNIT) SC SCH ×7 (01:17→11:09)
[2021-04-07 03:07] LABS: BASOPHILS # (AUTO) 0.1 10^3/uL (0.0-0.1); BASOPHILS % (AUTO) 1 % (0-10); EOSINOPHILS # (AUTO) 0.1 10^3/uL (0.0-0.3); EOSINOPHILS % (AUTO) 1 % (0-10); HEMATOCRIT 42 % (35-52); HEMOGLOBIN 14.3 g/dL (11.5-16.0); LYMPHOCYTES # (AUTO) 1.8 10^3/uL (1.0-4.0); LYMPHOCYTES % (AUTO) 16 % (12-44); MEAN CORPUSCULAR HEMOGLOBIN 32 pg (25-34); MEAN CORPUSCULAR HGB CONC 34 g/dL (32-36); MEAN CORPUSCULAR VOLUME 92 fL (80-99); MEAN PLATELET VOLUME 11.7 fL (9.0-12.2); MONOCYTES # (AUTO) 0.8 10^3/uL (0.0-1.0); MONOCYTES % (AUTO) 7 % (0-12); NEUTROPHILS # (AUTO) 8.1 10^3/uL (1.8-7.8); NEUTROPHILS % (AUTO) 75 % (42-75); PLATELET COUNT 147 10^3/uL (130-400); WHITE BLOOD COUNT 10.8 10^3/uL (4.3-11.0)
[2021-04-07 03:19] LABS: POTASSIUM 3.3 MMOL/L (3.6-5.0)
[2021-04-07 03:21] LABS: CALCIUM 8.9 MG/DL (8.5-10.1)
[2021-04-07 03:25] LABS: CREATININE SERUM 0.63 MG/DL (0.60-1.30)
[2021-04-07 03:27] LABS: MAGNESIUM 1.9 MG/DL (1.6-2.4)
[2021-04-07] MEDS: POTASSIUM CL 10MEQ/50ML IVPB 50 ML IV SCH ×2 (04:17→05:22)
[2021-04-07] MEDS ORDERED: GABAPENTIN 100 MG (NEURONTIN) CAP PO ONE (05:00)
[2021-04-07] MEDS ORDERED: HYDROcodone/APAP 5 MG/325 MG (LORTAB) TAB PO ONE (05:00)
[2021-04-07] MEDS ORDERED: KCL 20 MEQ TAB (K-DUR) PO SCH (06:00)
[2021-04-07] MEDS ORDERED: MAGNESIUM 1 GM/100 ML IVPB 100 ML IV SCH (06:00)
[2021-04-07] MEDS ORDERED: POTASSIUM CL 10MEQ/50ML IVPB 50 ML IV SCH (06:00)
--- NOTE | 2021-04-07 06:20 | ED General ---
General Chief Complaint: Overdose Stated Complaint: DRUG OVERDOSE / HYPOGLYCEMIA W IDDM Nursing Triage Note: PT ARRIVES TO THE ED VIA EMS TO ROOM 5. PT RESPONSIVE ONLY TO PAIN, EMS WAS TOLD BY FAMILY THAT AROUND 1730 THE PT WAS ASSUMED TO BE SLEEPING, SHORTLY BEFORE EMS DISPATCH FAMILY WAS UNABLE TO WAKE THE PT AND DIALED 911. EMS ON SCENE DISCOVERED PRESCRIPTION MEDS THAT HAD LARGE QUANTITIES MISSING IN RECENTLY FILLED BOTTLES. Nursing Sepsis Screen: No Definite Risk Source of Information: EMS, Old Records (ALL PMH IS FROM OLD RECORDS) Exam Limitations: Other (PT UNABLE TO PROVIDE ANY RELEVANT INFORMATION ) History of Present Illness Date Seen by Provider: Apr 06, 2021 Time Seen by Provider: 20:15 Initial Comments PT ARRIVES VIA EMS FROM HOME LAST SEEN BY FAMILY EARLIER TODAY/THIS MORNING PT WAS FOUND BY FAMILY WHEN THEY CAME HOME AROUND 1730--THOUGHT THAT PT WAS SLEEPING ON COUCH AND LEFT PT ALONE4 ANOTHER FAMILY MEMBER CAME HOME AROUND 1800 AND PT STILL SLEEPING ON COUCH, THAT FAMILY MEMBER WAS UNABLE TO WAKE PT UP AND CALLED EMS EMS REPORT THAT PT HAD BOTTLES OF ULTRAM AND FLEXERIL AND NAPROXEN--FILLED ON 04/03/21. EMS REPORT THAT #14 PILLS WERE MISSING FROM ULTRAM BOTTLE, AND #13 PILLS WERE MISSING FROM FLEXERIL BOTTLE. PT HAD BOTTLE OF NAPROXEN WITH ONLY A COUPLE OF PILLS MISSING ( PT WAS SEEN HERE 04/03/21 AFTER REPORTEDLY FALLING OUT OF BED ON 04/01/21 AND HIT HER HEAD AND C/O RIB PAIN--WORK UP WAS NEGATIVE AT THAT TIME) EMS REPORT THAT ACCUCHECK WAS 34--PT IS DIABETIC--PRESCRIBED LANTUS AND METFORMIN I/O PLACED IN RIGHT LOWER LEG BY EMS DUE TO INABILITY TO OBTAIN IV ACCESS EMS HAS STARTED D10 INFUSION. VITALS WERE NORMAL FOR EMS--O2 SAT 97-98% ON ROOM AIR, PT ABLE TO HANDLE SECRETIONS AND NO SNORING RESPIRATIONS BP 129-143 SYSTOLIC PULSE IN 80'S PCP: [facility] Allergies and Home Medications Allergies Coded Allergies: Tetanus Vaccines and Toxoid (Verified Adverse Reaction, Unknown, 05/25/14) ciprofloxacin (Verified Adverse Reaction, Unknown, 05/25/14) lovastatin (Verified Adverse Reaction, Unknown, 07/10/13) Home Medications Acetaminophen 325 Mg Tablet, 650 MG PO Q4H PRN for MILD PAIN Prescribed by: LUIGI ERAZO on 10/11/15 0815 Aripiprazole 2 Mg Tablet, 2 MG PO DAILY, (Reported) Aspirin 81 Mg Tablet.dr, 81 MG PO DAILY Prescribed by: LUIGI ERAZO on 06/27/15814 Atorvastatin Calcium 80 Mg Tablet, 80 MG PO HS Prescribed by: LUIGI ERAZO on 06/27/15814 Benzonatate 200 Mg Capsule, 200 MG PO TID PRN for COUGH, (Reported) Carvedilol 25 Mg Tablet, 25 MG PO BID, (Reported) Cholecalciferol 5,000 Unit Capsule, 5,000 UNIT PO DAILY, (Reported) Cyclobenzaprine HCl 10 Mg Tablet, 10 MG PO Q8H PRN for SPASMS Prescribed by: AZUCENA FRANKLIN on 04/03/21 1210 Furosemide 20 Mg Tablet, 20 MG PO DAILY PRN for PRN, (Reported) Gabapentin 100 Mg Capsule, 100 MG PO DAILY PRN for SEVERE HEADACHE, (Reported) NEW MED: HAS NOT BEEN PICKED UP YET; FILLED 06/24/15 Hydrocodone/Acetaminophen 1 Each Tablet, 1 TAB PO Q6H PRN for PAIN-MODERATE (5- 7) Prescribed by: PEE DUARTE on 02/18/21 1141 Insulin Detemir 100 Unit/1 Ml Insuln.pen, 20 UNITS SQ BID, (Reported) Lisinopril 20 Mg Tablet, 40 MG PO DAILY Prescribed by: LUIGI ERAZO on 06/27/15814 Metformin HCl 500 Mg Tab.er.24h, 1,000 MG PO BID, (Reported) Naproxen 500 Mg Tablet.dr, 500 MG PO BID Prescribed by: AZUCENA FRANKLIN on 04/03/21 1210 Nitrofurantoin Monohyd/M-Cryst 100 Mg Capsule, 1 TAB PO BID Prescribed by: AZUCENA FRANKLIN on 04/03/21 1212 [place] 3 Polyunsat Fatty Acids 1,000 Mg Cap, 1,000 MG PO BID WITH MEALS Prescribed by: LUIGI ERAZO on 06/27/15814 Potassium Chloride 20 Meq Tab.er.prt, 20 MEQ PO DAILY@0700 Prescribed by: LUIGI ERAZO on 06/27/15814 Ticagrelor 90 Mg Tablet, 90 MG PO BID Prescribed by: LUIGI ERAZO on 06/27/15814 Tramadol HCl 50 Mg Tablet, 50 MG PO Q4H Prescribed by: AZUCENA FRANKLIN on 04/03/21 1210 Vortioxetine Hydrobromide 20 Mg Tablet, 20 MG PO DAILY, (Reported) LAST FILLED 05/15/15 [Potassium&Magnesium] , 250 MG PO DAILY, (Reported) Patient Home Medication List Home Medication List Reviewed: Yes Review of Systems Review of Systems Constitutional: see HPI (UNABLE TO OBTAIN INFORMATION FROM PT) Past Gnghlsn-Zkursv-Wyvogk Hx Patient Social History Tobacco Use?: Yes (SMOKES 1 1/2 PPD) Tobacco type used: Cigarettes Smoking Status: Current Everyday Smoker Use of E-Cig and/or Vaping dev: No Substance use?: Yes Substance type: Marijuana Alcohol Use?: No Pt feels they are or have been: No Immunizations Up To Date Tetanus Booster (TDap): Unknown PED Vaccines UTD: Yes Influenza Vaccine Up-to-Date: No; Not Current First/Initial COVID19 Vaccinat: FEBRUARY 2021 Second COVID19 Vaccination Ricardo: MARCH 2021 COVID19 Vaccine Order Processing Manager: UNKNOWN Seasonal Allergies Seasonal Allergies: No Past Medical History Surgery/Hospitalization HX: CARDIAC CATH WITH STENT X 1 BILATERAL TUBAL LIGATION Surgeries: Yes Cardiac, Coronary Stent, Gallbladder, Orthopedic, Tubal Ligation Respiratory: Yes Pneumonia, COPD Cardiac: Yes (PRE-ECLAMPSIA, CHF) Hypertension Neurological: Yes (Borrego's palsy, tardive dyskinesia) Stroke Reproductive Disorders: No (no menses this yr; very irregular for yrs) Female Reproductive Disorders: Endometriosis Sexually Transmitted Disease: No HIV/AIDS: No Gastrointestinal: No Musculoskeletal: No (collar bone) Fractures Endocrine: Yes (Type II) Diabetes, Insulin dep HEENT: No Loss of Vision: Denies Hearing Impairment: Denies Cancer: No Psychosocial: Yes ("hate Trazadone so use Marijuana") Sleep Difficulties, Anxiety, Depression Integumentary: No Blood Disorders: No Adverse Reaction/Blood Tranf: No Family Medical History Cardiovascular disease 19 FATHER G8 BROTHER G8 SISTER FH: multiple myeloma Physical Exam Vital Signs Vital Signs - First Documented 04/06/21 20:15 Temp 35.2 Pulse 88 Resp 16 B/P (MAP) 142/83 (102) Pulse Ox 99 O2 Delivery Room Air Capillary Refill : Less Than 3 Seconds Height, Weight, BMI Height: 5'5.00" Weight: 154lbs. 8.0oz. 70.605752pw; 21.64 BMI Method:Stated General Appearance: Other (PT IS DROWSY, MOANING AND SAYING "OW". PT IS NOT ANSWERING QUESTIONS OR FOLLOWING COMMANDS ON ARRIVAL. ) HEENT: PERRL/EOMI, Other (PUPILS 3 MM AND EQUAL/SLUGGISH; NO DROOLING) Respiratory: Normal Breath Sounds, No Accessory Muscle Use, No Respiratory Distress Cardiovascular: Regular Rate, Rhythm, No Edema, No JVD, No Murmur Gastrointestinal: Non Tender, Soft Neurologic/Psychiatric: Other (MENTATION NOTED ABOVE. PT IS FREELY MOVING ALL EXTREMITIES, BUT NOT FOLLOWING COMMANDS OR ANSWERING QUESTIONS) Skin: Normal Color, Warm/Dry, Tattoos/Piercings (MULTIPLE TATTOOS) Focused Exam Lactate Level 04/06/21 20:50: Lactic Acid Level 0.91 Lactic Acid Level Laboratory Tests Test 04/06/21 20:50 Lactic Acid Level 0.91 MMOL/L (0.50-2.00) Progress/Results/Core Measures Suspected Sepsis Infection Criteria Present: None Sepsis Screen: No Definite Risk SIRS Temperature: Pulse: 100 Respiratory Rate: 16 Laboratory Tests 04/06/21 20:50: White Blood Count 9.1 Blood Pressure 120 /76 Mean: 120 04/06/21 20:50: Lactic Acid Level 0.91 Laboratory Tests 04/06/21 20:50: Creatinine 0.66, INR Comment 0.9, Platelet Count 162, Total Bilirubin 0.7 Results/Orders Lab Results Laboratory Tests Test 04/06/21 20:17 04/06/21 20:24 04/06/21 20:30 04/06/21 20:50 Range/Units Glucometer 147 H 70-110 MG/DL Urine Color YELLOW Urine Clarity CLEAR Urine pH 6.0 5-9 Urine Specific [place] 1.015 L 1.016-1.022 Urine Protein NEGATIVE NEGATIVE Urine Glucose (UA) NEGATIVE NEGATIVE Urine Ketones NEGATIVE NEGATIVE Urine Nitrite NEGATIVE NEGATIVE Urine Bilirubin NEGATIVE NEGATIVE Urine Urobilinogen 0.2 < = 1.0 MG/DL Urine Leukocyte Esterase NEGATIVE NEGATIVE Urine RBC (Auto) NEGATIVE NEGATIVE Urine RBC 0-2 /HPF Urine WBC NONE /HPF Urine Crystals PRESENT H /LPF Urine Amorphous Sediment RARE ARMANI URATES H /LPF Urine Bacteria NEGATIVE /HPF Urine Casts NONE /LPF Urine Mucus NEGATIVE /LPF Urine Culture Indicated NO Urine Opiates Screen NEGATIVE NEGATIVE Urine Oxycodone Screen NEGATIVE NEGATIVE Urine Methadone Screen NEGATIVE NEGATIVE Urine Propoxyphene Screen NEGATIVE NEGATIVE Urine Barbiturates Screen NEGATIVE NEGATIVE Ur Tricyclic Antidepressants Screen NEGATIVE NEGATIVE Urine Phencyclidine Screen NEGATIVE NEGATIVE Urine Amphetamines Screen NEGATIVE NEGATIVE Urine Methamphetamines Screen NEGATIVE NEGATIVE Urine Benzodiazepines Screen NEGATIVE NEGATIVE Urine Cocaine Screen NEGATIVE NEGATIVE Urine Cannabinoids Screen POSITIVE H NEGATIVE Influenza Type A (RT-PCR) Not Detected Not Detecte Influenza Type B (RT-PCR) Not Detected Not Detecte SARS-CoV-2 RNA (RT-PCR) Not Detected Not Detecte White Blood Count 9.1 4.3-11.0 10^3/uL Red Blood Count 4.99 3.80-5.11 10^6/uL Hemoglobin 16.1 H 11.5-16.0 g/dL Hematocrit 46 35-52 % Mean Corpuscular Volume 93 80-99 fL Mean Corpuscular Hemoglobin 32 25-34 pg Mean Corpuscular Hemoglobin Concent 35 32-36 g/dL Red Cell Distribution Width 13.0 10.0-14.5 % Platelet Count 162 130-400 10^3/uL Mean Platelet Volume 11.3 9.0-12.2 fL Immature Granulocyte % (Auto) 0 % Neutrophils (%) (Auto) 81 H 42-75 % Lymphocytes (%) (Auto) 14 12-44 % Monocytes (%) (Auto) 4 0-12 % Eosinophils (%) (Auto) 0 0-10 % Basophils (%) (Auto) 0 0-10 % Neutrophils # (Auto) 7.4 1.8-7.8 10^3/uL Lymphocytes # (Auto) 1.3 1.0-4.0 10^3/uL Monocytes # (Auto) 0.3 0.0-1.0 10^3/uL Eosinophils # (Auto) 0.0 0.0-0.3 10^3/uL Basophils # (Auto) 0.0 0.0-0.1 10^3/uL Immature Granulocyte # (Auto) 0.0 0.0-0.1 10^3/uL Erythrocyte Sedimentation Rate 22 0-30 MM/HR Prothrombin Time 12.5 12.2-14.7 SEC INR Comment 0.9 0.8-1.4 Activated Partial Thromboplast Time 32 24-35 SEC Sodium Level 140 135-145 MMOL/L Potassium Level 3.9 3.6-5.0 MMOL/L Chloride Level 99 98-107 MMOL/L Carbon Dioxide Level 28 21-32 MMOL/L Anion Gap 13 5-14 MMOL/L Blood Urea Nitrogen 10 7-18 MG/DL Creatinine 0.66 0.60-1.30 MG/DL Estimat Glomerular Filtration Rate 91 BUN/Creatinine Ratio 15 Glucose Level 127 H 70-105 MG/DL Lactic Acid Level 0.91 0.50-2.00 MMOL/L Calcium Level 9.5 8.5-10.1 MG/DL Corrected Calcium 9.3 8.5-10.1 MG/DL Magnesium Level 2.2 1.6-2.4 MG/DL Total Bilirubin 0.7 0.1-1.0 MG/DL Aspartate Amino Transf (AST/SGOT) 15 5-34 U/L Alanine Aminotransferase (ALT/SGPT) 20 0-55 U/L Alkaline Phosphatase 129 40-136 U/L Lactate Dehydrogenase 217 125-220 U/L Troponin I < 0.028 <0.028 NG/ML C-Reactive Protein High Sensitivity 1.51 H 0.00-0.50 MG/DL Total Protein 7.0 6.4-8.2 GM/DL Albumin 4.3 3.2-4.5 GM/DL Amylase Level 58 25-125 U/L Procalcitonin 0.02 <0.10 NG/ML Acetaminophen Level < 10 L 10-30 UG/ML Serum Alcohol < 10 <10 MG/DL Test 04/06/21 21:04 Range/Units Glucometer 130 H 70-110 MG/DL My Orders Orders - AZUCENA FRANKLIN DO Accucheck Stat ONCE (04/06/21 20:17) Ed Iv/Invasive Line Start (04/06/21 20:17) Ekg Tracing (04/06/21 20:17) Catheter(Urinary) Insert & Ass 03,15 (04/06/21 20:17) O2 (04/06/21 20:17) Monitor-Rhythm Ecg Trace Only (04/06/21 20:17) Acetaminophen (04/06/21 20:17) Alcohol (04/06/21 20:17) Amylase (04/06/21 20:17) Cbc With Automated Diff (04/06/21 20:17) Comprehensive Metabolic Panel (04/06/21 20:17) Drug Screen Stat (Urine) (04/06/21 20:17) Lactic Acid Analyzer (04/06/21 20:17) Magnesium (04/06/21 20:17) Protime With Inr (04/06/21 20:17) Partial Thromboplastin Time (04/06/21 20:17) Ua Culture If Indicated (04/06/21 20:17) Troponin I (04/06/21 20:17) Ed Iv/Invasive Line Start (04/06/21 20:17) D5 1/2 Ns 1000 Ml Iv Solution (Dextrose (04/06/21 20:30) Ct Head/Cervical Spine Wo (04/06/21 20:17) Chest 1 View, Ap/Pa Only (04/06/21 20:17) Procalcitonin (Pct) (04/06/21 20:17) Hs C Reactive Protein (04/06/21 20:17) Erythrocyte Sedimentation Rate (04/06/21 20:17) LDH (04/06/21 20:17) Covid 19 Inhouse Test (04/06/21 20:17) Influenza A And B By Pcr (04/06/21 20:17) Medications Given in ED Current Medications Medications Dose Ordered Sig/Veronica Route Start Time Stop Time Status Last Admin Dose Admin Dextrose/Sodium Chloride 1,000 ml @ 0 mls/hr ONCE ONCE IV 04/06/21 20:30 04/06/21 20:31 DC 04/06/21 20:58 1,000 MLS/HR Vital Signs/I&O 04/06/21 20:15 Temp 35.2 Pulse 88 Resp 16 B/P (MAP) 142/83 (102) Pulse Ox 99 O2 Delivery Room Air 04/07/21 00:00 Intake Total 100 ml Balance 100 ml Capillary Refill : Less Than 3 Seconds Blood Pressure Mean: 120 Point of Care Testing Finger Stick Blood Glucose: 173 Blood Glucose Action Taken: reported to Pierre Progress Note : Progress Note NO DETERIORATION IN PT'S CONDITION DURING ER STAY PT GRADUALLY HAD IMPROVED ALERTNESS, PT IS TALKING BUT SPEECH IS THICK-TONGUED AND MOSTLY NON-SENSICAL NO DETERIORATION IN PT'S CONDITION DURING ER STAY O2 SATS REMAIN IN UPPER 90'S ON ROOM AIR NO PROBLEMS MAINTAINING AIRWAY AT ANY TIME. ECG Initial ECG Impression Date: Apr 06, 2021 Initial ECG Impression Time: 20:59 Initial ECG Rate: 82 Initial ECG Rhythm: Normal Sinus (WITH MUCH ARTIFACT) Diagnostic Imaging Comments CXR--PER RADIOLOGIST REPORT AT 2207 FINDINGS: Single view of the chest demonstrates clear lungs bilaterally. The heart is normal. There is no pneumothorax. The osseous structures normal. IMPRESSION: Negative chest. CT HEAD/CERVICAL SPINE-- PER RADIOLOGIST REPORT AT 2207 CT HEAD: Ventricles are normal in size, shape and position. There is no midline shift or mass effect. There is no hemorrhage or evidence of acute ischemia. No extraaxial fluid collection or mass is seen. There is no skull fracture. Paranasal sinuses and left mastoid are clear. There is a nonspecific effusion in the right mastoid air cell. IMPRESSION: Negative CT head. Nonspecific effusion right mastoid air cell. CT CERVICAL SPINE: Alignment is normal. There is no subluxation or fracture. Degenerative changes are seen throughout. There is no osseous lesion. Soft tissues are intact. IMPRESSION: No traumatic malalignment or fracture. Reviewed: Reviewed by Ok Departure Communication (Admissions) 2208--SPOKE WITH DR. GOMEZ, HOSPITALIST FOR [facility]. ACCEPTS PT FOR ADMIT 2216--REPORT TO E-ICU PHYSICIAN. NO ADDITIONAL RECOMMENDATIONS AT THIS TIME. Impression Primary Impression: Drug overdose Additional Impressions: Hypoglycemia IDDM (insulin dependent diabetes mellitus) Marijuana use Disposition: ADMITTED INPATIENT Condition: Stable Admissions Decision to Admit Reason: Admit from ER (General) Decision to Admit/Date: Apr 06, 2021 Time/Decision to Admit Time: 22:10 Departure-Patient Inst. Referrals: [facility] (PCP) Primary Care Physician Patient Instructions: ALCOHOL AND SUBSTANCE ABUSE AZUCENA FRANKLIN DO Apr 07, 2021 06:20
--- NOTE | 2021-04-07 06:31 | Short Stay Summary-Hospitalist ---
History of Present Illness HPI/Chief Complaint CC: Drug overdose HPI: This is a 60yoWF clinic Pt of [facility] with a past history of use of illicit drugs who presented after taking Tramadol and Flexeril overdose. Unsure if this purposeful or non-purposeful, Pt reports she live alone. She appears to be very weak and older than stated age, will transfer down to fourth floor, initiate PT and OT and consult high school social science teacher. Source: patient Exam Limitations: no limitations Date Seen 04/07/21 Time Seen by a Provider: 11:00 Attending Physician Erin Bermudez DO [facility] Referring Physician Date of Admission Apr 06, 2021 at 22:10 Home Medications & Allergies Home Medications Reviewed patient Home Medication Reconciliation performed by pharmacy medication reconciliations wheel alignment technician and/or nursing. Patients Allergies have been reviewed. Allergies Allergies Coded Allergies Tetanus Vaccines and Toxoid (Verified Adverse Reaction, Unknown, 05/25/14) ciprofloxacin (Verified Adverse Reaction, Unknown, 05/25/14) lovastatin (Verified Adverse Reaction, Unknown, 07/10/13) Past Okverkw-Qghzbd-Oedewv Hx Patient Social History Marrital Status: single Employed/Student: unemployed Tobacco Use?: Yes Tobacco type used: Cigarettes Smoking Status: Current Everyday Smoker Use of E-Cig and/or Vaping dev: No Substance use?: No Additional substance use comme: DENIES SUBSTANCE ABUSE Alcohol Use?: No Pt feels they are or have been: No Immunizations Up To Date Date of Influenza Vaccine: Jun 15, 2015 First/Initial COVID19 Vaccinat: FEBRUARY 2021 Second COVID19 Vaccination Ricardo: MARCH 2021 Tetanus Booster (TDap): Unknown Hepatitis A: No Hepatitis B: No PED Vaccines UTD: Yes Date of Pneumonia Vaccine: Jul 04, 2013 Seasonal Allergies Seasonal Allergies: No Current Status status: No status: No Advance Directives: No Communicates: Verbally Primary Language: Norwegian Preferred Spoken Language: Norwegian Is interpretation needed?: No Past Medical History Surgeries: Gallbladder, Orthopedic, Tubal Ligation Pneumonia, COPD Hypertension Stroke Sexually Transmitted Disease: No HIV/AIDS: No Fractures Diabetes, Insulin dep Loss of Vision: Denies Hearing Impairment: Denies Sleep Difficulties, Anxiety, Depression Blood Disorders: No Adverse Reaction/Blood Tranf: No PMHx: HTN HLD DMII CAD s/p stenting 2014 Depression Migraines PSurgHx: Coronary stenting Cholecystectomy Family Medical History Cardiovascular disease 19 FATHER G8 BROTHER G8 SISTER FH: multiple myeloma Review of Systems Constitutional: see HPI Physical Exam Physical Exam Vital Signs Vital Signs - First Documented 04/06/21 20:15 Temp 35.2 Pulse 88 Resp 16 B/P (MAP) 142/83 (102) Pulse Ox 99 O2 Delivery Room Air Capillary Refill : Less Than 3 Seconds Height, Weight, BMI Height: 5'5.00" Weight: 154lbs. 8.0oz. 70.337139gm; 21.64 BMI Method:Stated General Appearance: No Apparent Distress, WD/WN, Chronically ill, Thin Respiratory: Lungs Clear, Normal Breath Sounds Cardiovascular: Regular Rate, Rhythm Neurologic/Psychiatric: Alert, Oriented x3, Depressed Affect Results Results/Procedures Labs Laboratory Tests 04/06/21 20:50 04/07/21 02:37 Patient resulted labs reviewed. Short Stay Diagnosis Discharge Diagnosis-Short Stay Admission Diagnosis Assessment: Drug overdose reported non-purposeful Hypertension COPD Current smoker Illicit drug use history Final Discharge Diagnosis Assessment: Drug overdose reported non-purposeful Hypertension COPD Current smoker Illicit drug use history Conclusion Plan Transfer the floor Social work consult ERIN BERMUDEZ DO Apr 07, 2021 06:31
[2021-04-07] MEDS ORDERED: CATHETER FLUSH 10 ML SYR IV PRN (07:15)
[2021-04-07] MEDS ORDERED: LISI40TA9 PO (12:58)
[2021-04-07] MEDS ORDERED: ASPI-1238 PO (12:58)
[2021-04-07] MEDS ORDERED: TRAM50TA3 PO (12:58)
[2021-04-07] MEDS ORDERED: CYCL10TA9 PO (12:58)
[2021-04-07] MEDS ORDERED: VALB80CA PO (12:58)
[2021-04-07] MEDS ORDERED: MIRA25TA PO (12:58)
[2021-04-07] MEDS ORDERED: CHOL100045 PO (12:58)
[2021-04-07] MEDS ORDERED: RT-ALBUINH INH (12:58)
[2021-04-07] MEDS ORDERED: AMLO-250 PO (12:58)
[2021-04-07] MEDS ORDERED: LEVO50TA6 PO (12:58)
[2021-04-07] MEDS ORDERED: CLON1TAB13 PO (12:58)
[2021-04-07] MEDS ORDERED: NITR-65 PO (12:58)
[2021-04-07] MEDS ORDERED: NAPR-915 PO (12:58)
--- NOTE | 2021-04-07 13:31 | Physical Therapy Evaluation ---
PT Evaluation-General Medical Diagnosis Admission Date Apr 06, 2021 at 22:10 Medical Diagnosis: overdose Onset Date: Apr 06, 2021 Therapy Diagnosis Therapy Diagnosis: impaired mobility, strength, endurance, balance Height/Weight Height (Feet): 5 Height (Inches): 5.00 Weight (Pounds): 154 Weight (Ounces): 8.0 Precautions Precautions/Isolations: Fall Prevention, Standard Precautions Referral Physician: Erin Bermudez DO Reason for Referral: Evaluation/Treatment Medical History Additional Medical History Past Medical History Surgery/Hospitalization HX: CARDIAC CATH WITH STENT X 1 BILATERAL TUBAL LIGATION Surgeries: Yes Cardiac, Coronary Stent, Gallbladder, Orthopedic, Tubal Ligation Respiratory: Yes Pneumonia, COPD Cardiac: Yes (PRE-ECLAMPSIA, CHF) Hypertension Neurological: Yes (Borrego's palsy, tardive dyskinesia) Stroke Reproductive Disorders: No (no menses this yr; very irregular for yrs) Female Reproductive Disorders: Endometriosis Sexually Transmitted Disease: No HIV/AIDS: No Gastrointestinal: No Musculoskeletal: No (collar bone) Fractures Endocrine: Yes (Type II) Diabetes, Insulin dep HEENT: No Loss of Vision: Denies Hearing Impairment: Denies Cancer: No Psychosocial: Yes ("hate Trazadone so use Marijuana") Sleep Difficulties, Anxiety, Depression Reviewed History: Yes Social History Home: Single Level Current Living Status: Alone Entry Into Home: Stairs Without Railing PT Steps Into Home: 2 Prior Prior Level of Function SCALE: Activities may be completed with or without assistive devices. 0-Ryonfwmamp-tunoxbk completes the activity by him/herself with no assistance from a helper. 5-Set-up or Clean-up Assistance-helper sets up or cleans up; patient completes activity. [place] assists only prior to or following the activity. 4-Supervision or Touching Assistance-helper provides verbal cues and/or touching/steadying and/or contact guard assistance as patient completes activity. Assistance may be provided throughout the activity or intermittently. 3-Partial/Moderate Assistance-helper does LESS THAN HALF the effort. [place] lifts, holds or supports trunk or limbs, but provides less than half the effort. 2-Substantial/Maximal Assistance-helper does MORE THAN HALF the effort. [place] lifts or holds trunk or limbs and provides more than half the effort. 1-Ihhqqmwbf-mavzte does ALL the effort. Patient does none of the effort to complete the activity. Or, the assistance of 2 or more helpers is required for the patient to complete the activity. If activity was not attempted, code reason: 7-Patient Refused. 9-Not Applicable-not attempted and the patient did not perform the activity before the current illness, exacerbation or injury. 10-Not Attempted due to Environmental Limitations-(lack of equipment, weather restraints, etc.). 88-Not Attempted due to Medical Conditions or Safety Concerns. Bed Mobility: 6 Transfers (B,C,W/C): 6 Gait: 6 Stairs: 6 Indoor Mobility (Ambulation): Independent Stairs: Independent PT Evaluation-Current Subjective Patient in bed pre tx, agrees to PT, has 3/10 pain "in both legs". Patient seems to have constant drooling and wipes mouth with a tissue every few seconds. Patient is very drowsy. Pt/Family Goals none stated Objective Patient Orientation: Person, Confused ROM/Strength ROM Lower Extremities WNL Strength Lower Extremities LLE (hip flexion 3/5, knee flexion 4-/5, knee extension 4-/5, dorsiflexion 4- /5), RLE (hip flexion 3/5, knee flexion 4-/5, knee extension 4-/5, dorsiflexion 4-/5) Sensory Hearing: Functional Sensation Right Lower Extremit: Intact Sensation Left Lower Extremity: Intact Transfers Roll Left to Right (QC): 6 Lying to Sitting/Side of Bed(Q: 6 Sit to Stand (QC): 4 Chair/Jtm-zu-Oltut Xfer(QC): 4 Gait Does the Patient Walk?: Yes Mode of Locomotion: Walk Anticipated Mode of Locomotion: Walk Walk 10 feet (QC): 4 Distance: 30' Gait Assistive Device: FWW Comments/Gait Description Patient ambulated 30' with a rolling walker with CGA. She had some unsteadiness but no LOB, cues for direction and safety. OT comes in to work with patient after getting back to and sitting on her bed. Balance Sitting Static: Normal Sitting Dynamic: Normal Standing Static: Fair Standing Dynamic: Fair Assessment/Needs Patient on bed post tx with OT. Patient has impaired mobility, strength, endurance, balance. Patient is cooperative, but slightly impulsive, needs CGA for transfers and ambulation. Rehab Potential: Fair PT Intermediate Goals Optical Store Manager Goals PT Optical Store Manager Goals Time Frame: Apr 14, 2021 Roll Left & Right (QC): 6 Sit to Lying (QC): 6 Lying-Sitting on Side/Bed(QC): 6 Sit to Stand (QC): 5 Chair/Gie-vo-Qpgud Xfer(QC): 5 Walk 10 feet (QC): 5 Walk 50ft with 2 Turns (QC): 5 PT Plan Problem List Problem List: Activity Tolerance, Functional Strength, Safety, Balance, Gait, Transfer, ROM Treatment/Plan Treatment Plan: Continue Plan of Care Treatment Plan: Education, Functional Activity Ayaz, Functional Strength, Gait, Safety, Therapeutic Exercise, Transfers Treatment Duration: Apr 14, 2021 Frequency: 6 times per week Estimated Hrs Per Day: .25 hour per day Patient and/or Family Agrees t: Yes Safety Risks/Education Patient Education: Gait Training, Transfer Techniques, Correct Positioning, Safety Issues Teaching Recipient: Patient Teaching Methods: Demonstration, Discussion Response to Teaching: Reinforcement Needed Discharge Recommendations Plan Patient will perform bed mobility and transfer training, balance and endurance training, functional strengthening, stair training, gait training, and education, to improve functional mobility and independence at home. Therapy Discharge Recommendati: Scheduled Assistance, Home & Family, Post Acute PT Time/GCodes Time In: 1256 Time Out: 1306 Total Billed Treatment Time: 10 Total Billed Treatment 1 visit RASHAAD HANDLEY PT Apr 07, 2021 13:31
--- NOTE | 2021-04-07 14:45 | Occupational Therapy Eval ---
OT Evaluation-General/PLF Medical Diagnosis Admission Date Apr 06, 2021 at 22:10 Medical Diagnosis: overdose Onset Date: Apr 06, 2021 Therapy Diagnosis Therapy Diagnosis: Weakness Height/Weight Height (Feet): 5 Height (Inches): 5.00 Weight (Pounds): 154 Weight (Ounces): 8.0 Precautions Precautions/Isolations: Fall Prevention, Standard Precautions Referral Physician: Erin Bermudez DO Referral Reason: Activity Tolerance, Self Care, Evaluation/Treatment, Strengthening/ROM Medical History Pertinent Medical History: COPD, CVA, DM, HTN Additional Medical History Broken left collar bone Current History Pt. found unresponsive by family. Found bottle of medication by her that was ingested. EMS called. Reviewed History: Yes Social History Home: Single Level Current Living Status: Alone Entry Into Home: Stairs Without Railing Steps Into Home: 2 ADL-Prior Level of Function SCALE: Activities may be completed with or without assistive devices. 1-Yxgijqpzud-ghfygqr completes the activity by him/herself with no assistance from a helper. 5-Set-up or Clean-up Assistance-helper sets up or cleans up; patient completes a ctivity. [place] assists only prior to or following the activity. 4-Supervision or Touching Assistance-helper provides verbal cues and/or touching/steadying and/or contact guard assistance as patient completes activity. Assistance may be provided throughout the activity or intermittently. 3-Partial/Moderate Assistance-helper does LESS THAN HALF the effort. [place] lifts, holds or supports trunk or limbs, but provides less than half the effort. 2-Substantial/Maximal Assistance-helper does MORE THAN HALF the effort. [place] lifts or holds trunk or limbs and provides more than half the effort. 8-Aqubfixbf-uzoyjz does ALL the effort. Patient does none of the effort to complete the activity. Or, the assistance of 2 or more helpers is required for the patient to complete the activity. If activity was not attempted, code reason: 7-Patient Refused. 9-Not Applicable-not attempted and the patient did not perform the activity before the current illness, exacerbation or injury. 10-Not Attempted due to Environmental Limitations-(lack of equipment, weather restraints, etc.). 88-Not Attempted due to Medical Conditions or Safety Concerns. ADL PLOF Comments Pt. states that she was independent with daily skills. She does indicate that she has had several falls recently, one resulting in a broken collar bone. She has difficulty stating why she is falling or when. Pt. reports that she drives to her son's house and is watching her grandkids. She does not use an assistive device. Self Care: Unknown Functional Cognition: Unknown DME/Equipment: Shower Pt. 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 Drive Self: Yes OT Current Status Subjective Pt. does not indicate pain but does state that she is cold at end of treatment. She is drooling during conversation and continuously holds rag to mouth. Pt. states that she ate eggs earlier, but that she didn't like them. She says she is hungry, but has to eat soft food because of her teeth. OT and pt. look over menu together and OT calls food services. Pt. is able to order soup and mashed potatoes. Mental Status/Objective Patient Orientation: Unable to Assess Attachments: Rogers Catheter Current Upper Extremity ROM Pt. has limited shoulder ROM when prompted to participate in ROM testing. She is able to demonstrate approximately 60 degrees bilateral UE. Upper Extremity Strength 2+/5 bilateral shoulders. Approximately 3/5 bilateral UE distally. ADL-Treatment Eating (QC): 5 On/Off Footwear (QC): 4 (Seated on EOB, pt. able to doff/don slipper socks.) Other Treatments Pt. able to transfer supine to/from sit with SBA. Pt. able to stand at bedside with CGA. Pt. declines having to use BSC, as she has a catheter. Pt. indicates she is hungry. Requests soft food. Unable to read menu due to not having glasses, and so OT reads to her. Food ordered for pt. Noted that pt's hair in tangles. Pt. states that she has brushed in a couple of days. Condition of hair suggests longer. Pt. states that she does not know how she got to hospital, or why. She reports she only remembers taking her medicine before bed. Pt. educated on purpose of OT goals and need to gain further strength. Pt. agreeable, but tired and lethargic. She is drooling and holding rag to mouth while talking. She indicates multiple falls recently but can't state exactly why. 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 would like to lay back down and transfers with SBA. Bed alarm set and all needs met. Education OT Patient Education: Correct positioning, Modified ADL techniques, Progress toward Goal/Update tx plan, Purpose of tx/functional activities, Reviewed precautions, Rehab process, Transfer techniques Teaching Recipient: Patient Teaching Methods: Demonstration, Discussion Response to Teaching: Verbalize Understanding, Return Demonstration, Reinforcement Needed OT Short Term Goals Short Term Goals Time Frame: Apr 14, 2021 Eatin Oral hygiene: 4 Toileting hygiene: 4 Shower/bathe self: 3 Upper body dressin Lower body dressin Putting on/taking off footwear: 4 OT Record Librarian Goals Fpc Goals Time Frame: Apr 21, 2021 Eating (QC): 6 Oral Hygiene (QC): 6 Toileting Hygiene (QC): 6 Shower/Bathe Self (QC): 4 Upper Body Dressing (QC): 6 Lower Body Dressing (QC): 6 On/Off Footwear (QC): 6 Additional Goals: 1-Demonstrate ADL Tasks, 2-Verbalize Understanding, 3- ImproveStrength/Ayaz 1=Demonstrate adherence to instructed precautions during ADL tasks. 2=Patient will verbalize/demonstrate understanding of assistive devices/modifications for ADL. 3=Patient will improve strength/tolerance for activity to enable patient to perform ADL's. OT Education/Plan Problem List/Assessment Assessment: Decreased Activ Tolerance, Decreased UE Strength, Impaired I ADL's, Impaired Self-Care Skills, Restricted Funct UE ROM Discharge Recommendations Plan/Recommendations: Continue POC Therapy Discharge Recommendati: Post Acute OT Treatment Plan/Plan of Care Treatment,Training & Education: Yes Patient would benefit from OT for education, treatment and training to promote independence in ADL's, mobility, safety and/or upper extremity function for ADL's. Plan of Care: ADL Retraining, Functional Mobility, UE Funct Exercise/Act Treatment Duration: Apr 21, 2021 Frequency: 5 times per week Estimated Hrs Per Day: .25 hour per day Agreement: Yes Rehab Potential: Good Time/GCodes Start Time: 13:05 Stop Time: 13:21 Total Time Billed (hr/min): 16 Billed Treatment Time 1, YEIMI HARLEY OT Apr 07, 2021 14:45
[2021-04-07] MEDS ORDERED: ACETAMINOPHEN 500 MG TAB (TYLENOL) PO PRN (18:45)
[2021-04-07] MEDS ORDERED: ALPRAZolam 0.25 MG (XANAX) TAB PO PRN (18:45)
[2021-04-07] MEDS ORDERED: HYDROcodone/APAP 5 MG/325 MG (LORTAB) TAB PO PRN (18:45)
[2021-04-07] MEDS ORDERED: MELATONIN 3 MG TABLET PO PRN (18:45)
[2021-04-07] MEDS ORDERED: CALCIUM CARBONATE 500 MG (TUMS) TAB.CHEW PO PRN (18:45)
[2021-04-07] MEDS ORDERED: ONDANSETRON 4 MG/2 ML (SDV) Z0FRAN IVP PRN (18:45)
[2021-04-07] MEDS ORDERED: LOPERAMIDE 2 MG (IMODIUM) TABLET PO PRN (18:45)
[2021-04-07] MEDS ORDERED: ENOXAPARIN 40 MG/0.4 ML (LOVENOX) SYR SC SCH (19:00)
[2021-04-07] MEDS ORDERED: ACETAMINOPHEN 325 MG TABLET PO PRN (19:15)
[2021-04-07] MEDS: polyethylene glycoL POWDER 17 GM (MIRALAX) PACK PO SCH (21:45)
[2021-04-07] MEDS: SENNA W/DOCUSATE (SENOKOT S) TABLET PO SCH (21:45)
[2021-04-08 05:57] LABS: BASOPHILS # (AUTO) 0.1 10^3/uL (0.0-0.1); BASOPHILS % (AUTO) 1 % (0-10); EOSINOPHILS # (AUTO) 0.2 10^3/uL (0.0-0.3); EOSINOPHILS % (AUTO) 3 % (0-10); HEMATOCRIT 39 % (35-52); LYMPHOCYTES # (AUTO) 2.7 10^3/uL (1.0-4.0); LYMPHOCYTES % (AUTO) 40 % (12-44); MEAN CORPUSCULAR HEMOGLOBIN 31 pg (25-34); MEAN CORPUSCULAR HGB CONC 34 g/dL (32-36); MEAN CORPUSCULAR VOLUME 93 fL (80-99); MEAN PLATELET VOLUME 11.1 fL (9.0-12.2); MONOCYTES # (AUTO) 0.5 10^3/uL (0.0-1.0); MONOCYTES % (AUTO) 8 % (0-12); NEUTROPHILS # (AUTO) 3.3 10^3/uL (1.8-7.8); NEUTROPHILS % (AUTO) 49 % (42-75); PLATELET COUNT 146 10^3/uL (130-400); WHITE BLOOD COUNT 6.7 10^3/uL (4.3-11.0)
[2021-04-08 06:10] LABS: ALBUMIN 3.6 GM/DL (3.2-4.5)
[2021-04-08 06:11] LABS: POTASSIUM 3.3 MMOL/L (3.6-5.0)
[2021-04-08 06:12] LABS: CALCIUM 8.5 MG/DL (8.5-10.1)
[2021-04-08 06:13] LABS: TOTAL PROTEIN 6.2 GM/DL (6.4-8.2)
[2021-04-08 06:15] LABS: BILIRUBIN,TOTAL 0.5 MG/DL (0.1-1.0)
[2021-04-08 06:17] LABS: CREATININE SERUM 0.56 MG/DL (0.60-1.30)
[2021-04-08] MEDS: polyethylene glycoL POWDER 17 GM (MIRALAX) PACK PO SCH (09:45)
[2021-04-08] MEDS: SENNA W/DOCUSATE (SENOKOT S) TABLET PO SCH (09:45)
--- NOTE | 2021-04-08 10:58 | Occupational Ther Daily Note ---
OT Current Status-Daily Note Subjective Pt alert, oriented to person/ place. Pt agrees to tx. Slow to speak/ slower processing. Pt states min pain in L collar bone. Mental Status/Objective Patient Orientation: Person, Place Attachments: Rogers Catheter ADL-Treatment Therapy Code Descriptions/Definitions Functional Will Measure: 0=Not Assessed/NA 4=Minimal Assistance 1=Total Assistance 5=Supervision or Setup 2=Maximal Assistance 6=Modified Will 3=Moderate Assistance 7=Complete IndependenceSCALE: Activities may be completed with or without assistive devices. 3-Uddefqtfvl-thagfvl completes the activity by him/herself with no assistance from a helper. 5-Set-up or Clean-up Assistance-helper sets up or cleans up; patient completes activity. [place] assists only prior to or following the activity. 4-Supervision or Touching Assistance-helper provides verbal cues and/or touching/steadying and/or contact guard assistance as patient completes activity. Assistance may be provided throughout the activity or intermittently. 3-Partial/Moderate Assistance-helper does LESS THAN HALF the effort. [place] lifts, holds or supports trunk or limbs, but provides less than half the effort. 2-Substantial/Maximal Assistance-helper does MORE THAN HALF the effort. [place] lifts or holds trunk or limbs and provides more than half the effort. 3-Arffifter-aulvcx does ALL the effort. Patient does none of the effort to complete the activity. Or, the assistance of 2 or more helpers is required for the patient to complete the activity. If activity was not attempted, code reason: 7-Patient Refused. 9-Not Applicable-not attempted and the patient did not perform the activity before the current illness, exacerbation or injury. 10-Not Attempted due to Environmental Limitations-(lack of equipment, weather restraints, etc.). 88-Not Attempted due to Medical Conditions or Safety Concerns. Eating (QC): 6 Oral Hygiene (QC): 7 Shower/Bathe Self (QC): 7 Toileting Hygiene (QC): 7 Toilet Transfer (QC): 7 Other Treatment Pt in bed, denies ADLs. Sits EOB with increased time, good balance. Completes UE ROM ex EOB with good ability: 10-15 reps of the following: UE shoulder flexion 90* (slight pain LUE, encouraged to complete AAROM), shoulder abduction to 90*, elbow flexion, forearm sup/ pronation and wrist flex/ ext. During this, pt is e ducated on energy conservation techniques to be utilized at home due to busy schedule/ taking care of 3 grandsons during day. Pt sits EOB for hair grooming, completing with good ability/ thoroughness. Returns to bed with all needs met, call light in reach Education OT Patient Education: Correct positioning, Exercise program, Home exercise program, Safety issues Teaching Recipient: Patient Teaching Methods: Demonstration, Discussion Response to Teaching: Verbalize Understanding, Return Demonstration OT Short Term Goals Short Term Goals Time Frame: Apr 14, 2021 Eatin Oral hygiene: 4 Toileting hygiene: 4 Shower/bathe self: 3 Upper body dressin Lower body dressin Putting on/taking off footwear: 4 OT Correction Goals Correction Goals Time Frame: Apr 21, 2021 Eating (QC): 6 Oral Hygiene (QC): 6 Toileting Hygiene (QC): 6 Shower/Bathe Self (QC): 4 Upper Body Dressing (QC): 6 Lower Body Dressing (QC): 6 On/Off Footwear (QC): 6 Additional Goals: 1-Demonstrate ADL Tasks, 2-Verbalize Understanding, 3-I mproveStrength/Ayaz 1=Demonstrate adherence to instructed precautions during ADL tasks. 2=Patient will verbalize/demonstrate understanding of assistive devices/modifications for ADL. 3=Patient will improve strength/tolerance for activity to enable patient to perform ADL's. OT Education/Plan Problem List/Assessment Assessment: Decreased Activ Tolerance, Decreased UE Strength, Impaired Cognition, Impaired I ADL's, Impaired Self-Care Skills Discharge Recommendations Plan/Recommendations: Continue POC Therapy Discharge Recommendati: Home & Family Treatment Plan/Plan of Care Treatment,Training & Education: Yes Patient would benefit from OT for education, treatment and training to promote independence in ADL's, mobility, safety and/or upper extremity function for ADL's. Plan of Care: ADL Retraining, Functional Mobility, UE Funct Exercise/Act Treatment Duration: Apr 21, 2021 Frequency: 5 times per week Estimated Hrs Per Day: .25 hour per day Agreement: Yes Rehab Potential: Good Time/GCodes Start Time: 10:27 Stop Time: 10:38 Total Time Billed (hr/min): 9 Billed Treatment Time 1, EX (9) AUGIE BLACKWELL OTR Apr 08, 2021 10:58
[2021-04-08] MEDS ORDERED: KCL 10 MEQ TAB (MICRO K) PO ONE (11:15)
--- NOTE | 2021-04-08 12:02 | Discharge Summary ---
Discharge Summary Hospital Course Was the Problem List Reviewed?: Yes Problems/Dx: (1) Drug overdose Status: Acute Hospital Course Date of Admission: Apr 06, 2021 at 22:10 Admission Diagnosis : [facility] [place]: 04/08/21 Discharge Diagnosis: Drug overdose Hospital Course: Hospital course: Pt had an uneventful hospital course, she was admitted for overdose which was not purposeful but she had ongoing issues which is on a chronic basis. She was found to have potassium of 3.1 at time of discharge was given 10 mEq x1. We d iscontinued the tele, and the catheter and PT and OT thought she was safe to return back home, her son is involved in her care. Labs and Pending Lab Test: Laboratory Tests 04/07/21 15:20: Glucometer 173H 04/08/21 05:25: White Blood Count 6.7, Red Blood Count 4.15, Hemoglobin 13.0, Hematocrit 39, Mean Corpuscular Volume 93, Mean Corpuscular Hemoglobin 31, Mean Corpuscular Hemoglobin Concent 34, Red Cell Distribution Width 13.1, Platelet Count 146, Mean Platelet Volume 11.1, Immature Granulocyte % (Auto) 0, Neutrophils (%) (Auto) 49, Lymphocytes (%) (Auto) 40, Monocytes (%) (Auto) 8, Eosinophils (%) (Auto) 3, Basophils (%) (Auto) 1, Neutrophils # (Auto) 3.3, Lymphocytes # (Auto) 2.7, Monocytes # (Auto) 0.5, Eosinophils # (Auto) 0.2, Basophils # (Auto) 0.1, Immature Granulocyte # (Auto) 0.0, Sodium Level 141, Potassium Level 3.3L, Chloride Level 105, Carbon Dioxide Level 25, Anion Gap 11, Blood Urea Nitrogen 8, Creatinine 0.56L, Estimat Glomerular Filtration Rate 110, BUN/Creatinine Ratio 14, Glucose Level 138H, Calcium Level 8.5, Corrected Calcium 8.8, Total Bilirubin 0.5, Aspartate Amino Transf (AST/SGOT) 20, Alanine Aminotransferase (ALT/SGPT) 16, Alkaline Phosphatase 99, Total Protein 6.2L, Albumin 3.6 Microbiology 04/06/21 MRSA Screen - Final, Complete MRSA not isolated Home Meds Active Reported Naproxen 500 Mg Tablet 500 Mg PO BID PRN Tramadol HCl 50 Mg Tablet 50 Mg PO Q4H PRN Macrobid 100 mg Capsule (Nitrofurantoin Monohyd/M-Cryst) 100 Mg Capsule 1 Tab PO BID FILLED 04-03-2021 #20/ DAY SUPPLY Cyclobenzaprine HCl 10 Mg Tablet 10 Mg PO Q8H PRN Vitamin D3 (Cholecalciferol (Vitamin D3)) 25 Mcg Tablet 50 Mcg PO HS Aspirin EC (Aspirin) 81 Mg Tablet.dr 81 Mg PO DAILY Amlodipine Besylate 5 Mg Tablet 5 Mg PO DAILY Levothyroxine Sodium 50 Mcg Tablet 50 Mcg PO DAILY Proventil Hfa (Albuterol Sulfate) 6.7 Gm Hfa.aer.ad 2 Puff INH Q6H PRN Clonazepam 1 Mg Tablet 1 Mg PO HS Myrbetriq (Mirabegron) 25 Mg Tab.er.24h 25 Mg PO DAILY Ingrezza (Valbenazine Tosylate) 80 Mg Capsule 80 Mg PO HS Lisinopril 40 Mg Tablet 40 Mg PO HS Trintellix (Vortioxetine Hydrobromide) 20 Mg Tablet 20 Mg PO DAILY Levemir Flextouch (Insulin Detemir) 100 Unit/1 Ml Insuln.pen 25 Units SQ BID Carvedilol 25 Mg Tablet 25 Mg PO BID Assessment/Pt Instructions [facility] in 1 week Discharge Planning: <30 minutes discharge planning Discharge Instructions Discharge Diet: No Restrictions Discharge Physical Examination Vital Signs Vital Signs Date Time Temp Pulse Resp B/P (MAP) Pulse Ox O2 Delivery O2 Flow Rate FiO2 04/08/21 11:24 36.6 79 18 141/91 (108) 94 Room Air General Appearance: No Apparent Distress, WD/WN, Chronically ill Allergies: Coded Allergies: Tetanus Vaccines and Toxoid (Verified Adverse Reaction, Unknown, 05/25/14) ciprofloxacin (Verified Adverse Reaction, Unknown, 05/25/14) lovastatin (Verified Adverse Reaction, Unknown, 07/10/13) Discharge Summary Date of Admission Apr 06, 2021 at 22:10 Date of Discharge Discharge Date: Apr 08, 2021 Admission Diagnosis Assessment: Drug overdose reported non-purposeful Hypertension COPD Current smoker Illicit drug use history Discharge Diagnosis Transfer the floor Social work consult SERGEI GOMEZ DO Apr 08, 2021 12:02
--- NOTE | 2021-04-08 12:35 | Physical Therapy Daily Note ---
PT Daily Note-Current Subjective Patient in bed pre tx, agrees to PT, has no complaints of pain. Appearance Patient in bed post tx with nurse call, phone, tray, bed alarm on. Mental Status Patient Orientation: Person, Place Transfers SCALE: Activities may be completed with or without assistive devices. 5-Asxgtueaow-tgwdonw completes the activity by him/herself with no assistance from a helper. 5-Set-up or Clean-up Assistance-helper sets up or cleans up; patient completes activity. [place] assists only prior to or following the activity. 4-Supervision or Touching Assistance-helper provides verbal cues and/or touching/steadying and/or contact guard assistance as patient completes activity. Assistance may be provided throughout the activity or intermittently. 3-Partial/Moderate Assistance-helper does LESS THAN HALF the effort. [place] lifts, holds or supports trunk or limbs, but provides less than half the effort. 2-Substantial/Maximal Assistance-helper does MORE THAN HALF the effort. [place] lifts or holds trunk or limbs and provides more than half the effort. 4-Tvwjpyljm-czjsqh does ALL the effort. Patient does none of the effort to complete the activity. Or, the assistance of 2 or more helpers is required for the patient to complete the activity. If activity was not attempted, code reason: 7-Patient Refused. 9-Not Applicable-not attempted and the patient did not perform the activity before the current illness, exacerbation or injury. 10-Not Attempted due to Environmental Limitations-(lack of equipment, weather restraints, etc.). 88-Not Attempted due to Medical Conditions or Safety Concerns. Roll Left & Right (QC): 6 Sit to Lying (QC): 6 Lying to Sitting/Side of Bed(Q: 6 Sit to Stand (QC): 4 Chair/Gtn-cv-Jzncu Xfer(QC): 4 Gait Training Distance: 300' Walk 10 feet (QC): 4 Walk 50 ft with 2 Turns(QC): 4 Walk 150 ft (QC): 4 Gait Persons Needed: 1 Gait Assistive Device: FWW SBA, slow but steady ambulation, no LOB Treatments bed mobility and transfers, ambulation Assessment Current Status: Fair Progress improving balance and endurance PT Mixed Livestock Farmer Goals Long-Term Goals PT Mixed Livestock Farmer Goals Time Frame: Apr 14, 2021 Roll Left & Right (QC): 6 Sit to Lying (QC): 6 Lying-Sitting on Side/Bed(QC): 6 Sit to Stand (QC): 5 Chair/Nos-ws-Ieklz Xfer(QC): 5 Walk 10 feet (QC): 5 Walk 50ft with 2 Turns (QC): 5 PT Plan Problem List Problem List: Activity Tolerance, Functional Strength, Safety, Balance, Gait, Transfer Treatment/Plan Treatment Plan: Continue Plan of Care Treatment Plan: Education, Functional Activity Ayaz, Functional Strength, Gait, Safety, Therapeutic Exercise, Transfers Treatment Duration: Apr 14, 2021 Frequency: 6 times per week Estimated Hrs Per Day: .25 hour per day Patient and/or Family Agrees t: Yes Safety Risks/Education Patient Education: Gait Training, Transfer Techniques, Correct Positioning, Safety Issues Teaching Recipient: Patient Teaching Methods: Demonstration, Discussion Response to Teaching: Reinforcement Needed Time/GCodes Time In: 1130 Time Out: 1143 Total Billed Treatment Time: 13 Total Billed Treatment 1 visit GT 13' RASHAAD AREVALO PT Apr 08, 2021 12:35
[2021-04-08 14:57] VITALS: BP 141/91
== END 2021-04-08 14:57 | disposition home or self-care (01) ==
LOC: EDUNIT# 20:12 → ER 20:14 → ICU 20:15 → INTOOBSV 22:10 → UNDOADMOB 22:10 → 4TH 04-07 14:15 → ICU 04-07 14:15 → UNDODISOB 04-08 15:10
PROVIDERS: ADMIT Internal Medicine; ATTEND Internal Medicine
DX: T40.421A Poisoning by tramadol, accidental (unintentional), initial encounter (principal); T48.1X1A Poisoning by skeletal muscle relaxants [neuromuscular blocking agents], accidental (unintentional), initial encounter; E11.649 Type 2 diabetes mellitus with hypoglycemia without coma; J44.9 Chronic obstructive pulmonary disease, unspecified; I50.9 Heart failure, unspecified; I11.0 Hypertensive heart disease with heart failure; G51.0 Bell's palsy; G47.9 Sleep disorder, unspecified; F41.9 Anxiety disorder, unspecified; F32.9 Major depressive disorder, single episode, unspecified; F17.210 Nicotine dependence, cigarettes, uncomplicated; F12.90 Cannabis use, unspecified, uncomplicated; Z98.51 Tubal ligation status; Z86.73 Personal history of transient ischemic attack (TIA), and cerebral infarction without residual deficits; Z79.899 Other long term (current) drug therapy; Z79.891 Long term (current) use of opiate analgesic; Z79.4 Long term (current) use of insulin; Z80.7 Family history of other malignant neoplasms of lymphoid, hematopoietic and related tissues
CPT/HCPCS: 36680; 51702; 70450; 71045; 72125; 80048; 80053 ×2; 80306; 81000; 82150; 82947 ×2; 83605; 83615; 83735 ×2; 84100; 84145; 84484; 85025 ×3; 85610; 85652; 85730; 86141; 87081; 87636; 93005; 93041; 97110; 97116; 97161; 97166; 99285; G0378; G0480 ×2; 36415; 80320; 80329

== ENCOUNTER 2022-02-12 10:36 | Emergency (ER) | payer MEDICARE, MEDICAID ==
[~2022-02-12] VITALS: Ht 165 cm; Wt 45.0 kg
[~2022-02-12 10:36] MED LIST changes: +AMLO-250 PO; +CHOL10004 PO; +CLON1TAB13 PO; +CYCL10TA25 PO; -CYCL10TA9 PO; +LEVO50TA6 PO; +LISI40TA9 PO; +MIRA25TA PO; +NAPR-915 PO; +POTA-169 PO; -POTA20TA8 PO; +RT-ALBUINH INH; +TRAM50TA3 PO; +VALB80CA PO
--- NOTE | 2022-02-12 11:05 | ED General ---
General Chief Complaint: Glucose Problems Stated Complaint: HYPOGLYCEMIA Nursing Triage Note: PT TO [facility] WITH CC OF HYPOGLYCEMIA AFTER TAKING 20 UNITS OF LANTUS AND NOT EATING. PT WAS AT [facility] AND LAID DOWN, DID NOT FALL, BS=99 BY EMS. EMS WAS GIVING HER A CANDY BAR AND SIPS OF OJ. PT ALERT X'S 4 ON ARRIVAL. Source of Information: Patient Exam Limitations: No Limitations History of Present Illness Date Seen by Provider: February 12, 2022 Time Seen by Provider: 11:03 Initial Comments Patient is a 61-year-old female who is diabetic, history of coronary artery disease who presents ED with nausea weakness low blood sugar. Patient took 20 units of Lantus this morning. She did not eat. Went to [facility] started feeling weak nauseous and dizzy. She had a lay down on the ground but did not fall. Started eating a candy bar. EMS on the scene states blood sugar was 97. On arrival 109. She end up drinking half a cup of orange juice here with significant provement in her symptoms. She denies taking regular insulin. She believes she is type II diabetic. She is currently asymptomatic. History of similar symptoms in the past. She states this was secondary to not eating this morning. Denies of any vomiting, diarrhea, syncope, chest pain, cough, shortness of breath, fever, chills, dysuria. Allergies and Home Medications Allergies Coded Allergies: Tetanus Vaccines and Toxoid (Verified Adverse Reaction, Unknown, 05/25/14) ciprofloxacin (Verified Adverse Reaction, Unknown, 05/25/14) lovastatin (Verified Adverse Reaction, Unknown, 07/10/13) Patient Home Medication List Home Medication List Reviewed: Yes Albuterol Sulfate (Proventil Hfa) 6.7 Gm Hfa.aer.ad, 2 PUFF INH Q6H PRN for SHORTNESS OF BREATH, (Reported) Entered as Reported by: ANITRA LUNDBERG on 04/07/21 1258 Amlodipine Besylate (Amlodipine Besylate) 5 Mg Tablet, 5 MG PO DAILY, (Reported) Entered as Reported by: ANITRA LUNDBERG on 04/07/21 1258 Aspirin (Aspirin EC) 81 Mg Tablet.dr, 81 MG PO DAILY, (Reported) Entered as Reported by: ANITRA LUNDBERG on 04/07/21 1258 Carvedilol (Carvedilol) 25 Mg Tablet, 25 MG PO BID, (Reported) Entered as Reported by: ATA TILLMAN on 06/25/15 1236 Cholecalciferol (Vitamin D3) (Vitamin D3) 25 Mcg Tablet, 50 MCG PO HS, (Reported) Entered as Reported by: ANITRA LUNDBERG on 04/07/21 1258 Clonazepam (Clonazepam) 1 Mg Tablet, 1 MG PO HS, (Reported) Entered as Reported by: ANITRA LUNDBERG on 04/07/21 1258 Cyclobenzaprine HCl (Cyclobenzaprine HCl) 10 Mg Tablet, 10 MG PO Q8H PRN for SPASMS, (Reported) Entered as Reported by: ANITRA LUNDBERG on 04/07/21 1258 Insulin Detemir (Levemir Flextouch) 100 Unit/1 Ml Insuln.pen, 25 UNITS SQ BID, (Reported) Entered as Reported by: ATA TILLMAN on 06/25/15 1236 Levothyroxine Sodium (Levothyroxine Sodium) 50 Mcg Tablet, 50 MCG PO DAILY, (Reported) Entered as Reported by: ANITRA LUNDBERG on 04/07/21 1258 Lisinopril (Lisinopril) 40 Mg Tablet, 40 MG PO HS, (Reported) Entered as Reported by: ANITRA LUNDBERG on 04/07/21 1258 Mirabegron (Myrbetriq) 25 Mg Tab.er.24h, 25 MG PO DAILY, (Reported) Entered as Reported by: ANITRA LUNDBERG on 04/07/21 1258 Naproxen (Naproxen) 500 Mg Tablet, 500 MG PO BID PRN for PAIN-MILD (1-4), (Reported) Entered as Reported by: ANITRA LUNDBERG on 04/07/21 125 Tramadol HCl (Tramadol HCl) 50 Mg Tablet, 50 MG PO Q4H PRN for PAIN-MODERATE (5- 7), (Reported) Entered as Reported by: ANITRA LUNDBERG on 04/07/21 1258 Valbenazine Tosylate (Ingrezza) 80 Mg Capsule, 80 MG PO HS, (Reported) Entered as Reported by: ANITRA LUNDBERG on 04/07/21 1258 Vortioxetine Hydrobromide (Trintellix) 20 Mg Tablet, 20 MG PO DAILY, (Reported) Entered as Reported by: ATA TILLMAN on 06/25/15 0237 Review of Systems Review of Systems Constitutional: No chills, No diaphoresis; malaise, weakness EENTM: No blurred vision Respiratory: No cough, No dyspnea on exertion, No short of breath Cardiovascular: No chest pain Gastrointestinal: No abdominal pain, No diarrhea; nausea; No vomiting Genitourinary: No decreased output, No discharge Musculoskeletal: No back pain, No gout, No joint pain Skin: No change in color, No change in hair/nails All Other Systems Reviewed Negative Unless Noted: Yes Past Yuhwaei-Zgmorp-Ajqfqy Hx Patient Social History Tobacco Use?: Yes Tobacco type used: Cigarettes Smoking Status: Current Everyday Smoker Substance use?: No Alcohol Use?: No Immunizations Up To Date Tetanus Booster (TDap): Unknown PED Vaccines UTD: Yes First/Initial COVID19 Vaccinat: FEBRUARY 2021 Second COVID19 Vaccination Ricardo: MARCH 2021 Seasonal Allergies Seasonal Allergies: No Past Medical History Surgery/Hospitalization HX: CARDIAC CATH WITH STENT X 1BILATERAL TUBAL LIGATION, HX OF AMI, CHF, DIABETIC TYPE I Surgeries: Yes Cardiac, Coronary Stent, Gallbladder, Orthopedic, Tubal Ligation Respiratory: Yes Pneumonia, COPD Cardiac: Yes (PRE-ECLAMPSIA, CHF) Hypertension Neurological: Yes (Borrego's palsy, tardive dyskinesia) Stroke Reproductive Disorders: No (no menses this yr; very irregular for yrs) Female Reproductive Disorders: Endometriosis Sexually Transmitted Disease: No HIV/AIDS: No Gastrointestinal: No Musculoskeletal: No (collar bone) Fractures Endocrine: Yes (Type II) Diabetes, Insulin dep HEENT: No Loss of Vision: Denies Hearing Impairment: Denies Cancer: No Psychosocial: Yes ("hate Trazadone so use Marijuana") Sleep Difficulties, Anxiety, Depression Integumentary: No Blood Disorders: No Adverse Reaction/Blood Tranf: No Family Medical History Cardiovascular disease 19 FATHER G8 BROTHER G8 SISTER FH: multiple myeloma Physical Exam Vital Signs Vital Signs - First Documented 02/12/22 10:38 Temp 35.7 Pulse 64 Resp 18 B/P (MAP) 113/81 (92) Pulse Ox 95 O2 Delivery Room Air Capillary Refill : Less Than 3 Seconds Height, Weight, BMI Height: 5'5.00" Weight: 154lbs. 8.0oz. 70.429261kb; 16.00 BMI Method:Stated General Appearance: No Apparent Distress, WD/WN Eyes: Bilateral Eye Normal Inspection, Bilateral Eye PERRL, Bilateral Eye EOMI HEENT: PERRL/EOMI, TMs Normal, Normal ENT Inspection, Pharynx Normal Neck: Full Range of Motion, Normal Inspection, Non Tender, Supple Respiratory: Chest Non Tender, Lungs Clear Cardiovascular: Regular Rate, Rhythm, No Edema, No Gallop, No JVD, No Murmur Gastrointestinal: Normal Bowel Sounds, No Organomegaly, No Pulsatile Mass, Non Tender, Soft Back: Normal Inspection, No CVA Tenderness, No Vertebral Tenderness Extremity: Normal Capillary Refill, Normal Inspection, Normal Range of Motion, Non Tender Neurologic/Psychiatric: Alert, Oriented x3, No Motor/Sensory Deficits, Normal Mood/Affect, bagman/woman II-XII Norm as Tested Skin: Normal Color, Warm/Dry Progress/Results/Core Measures Suspected Sepsis SIRS Temperature: Pulse: 64 Respiratory Rate: 18 Laboratory Tests 02/12/22 10:53: White Blood Count 10.6 Blood Pressure 113 /81 Mean: 92 Laboratory Tests 02/12/22 10:53: Creatinine 0.79, Platelet Count 171, Total Bilirubin 0.6 Results/Orders Lab Results Laboratory Tests Test 02/12/22 10:52 02/12/22 10:53 02/12/22 11:57 02/12/22 13:01 Range/Units Glucometer 102 205 H 278 H 70-110 MG/DL White Blood Count 10.6 4.3-11.0 10^3/uL Red Blood Count 5.13 H 3.80-5.11 10^6/uL Hemoglobin 16.3 H 11.5-16.0 g/dL Hematocrit 48 35-52 % Mean Corpuscular Volume 93 80-99 fL Mean Corpuscular Hemoglobin 32 25-34 pg Mean Corpuscular Hemoglobin Concent 34 32-36 g/dL Red Cell Distribution Width 12.6 10.0-14.5 % Platelet Count 171 130-400 10^3/uL Mean Platelet Volume 11.3 9.0-12.2 fL Immature Granulocyte % (Auto) 0 % Neutrophils (%) (Auto) 60 42-75 % Lymphocytes (%) (Auto) 31 12-44 % Monocytes (%) (Auto) 6 0-12 % Eosinophils (%) (Auto) 3 0-10 % Basophils (%) (Auto) 1 0-10 % Neutrophils # (Auto) 6.4 1.8-7.8 10^3/uL Lymphocytes # (Auto) 3.3 1.0-4.0 10^3/uL Monocytes # (Auto) 0.6 0.0-1.0 10^3/uL Eosinophils # (Auto) 0.3 0.0-0.3 10^3/uL Basophils # (Auto) 0.1 0.0-0.1 10^3/uL Immature Granulocyte # (Auto) 0.0 0.0-0.1 10^3/uL Sodium Level 139 135-145 MMOL/L Potassium Level 4.0 3.6-5.0 MMOL/L Chloride Level 105 98-107 MMOL/L Carbon Dioxide Level 21 21-32 MMOL/L Anion Gap 13 5-14 MMOL/L Blood Urea Nitrogen 11 7-18 MG/DL Creatinine 0.79 0.60-1.30 MG/DL Estimat Glomerular Filtration Rate 85 BUN/Creatinine Ratio 14 Glucose Level 102 70-105 MG/DL Calcium Level 9.4 8.5-10.1 MG/DL Corrected Calcium 9.2 8.5-10.1 MG/DL Total Bilirubin 0.6 0.1-1.0 MG/DL Aspartate Amino Transf (AST/SGOT) 29 5-34 U/L Alanine Aminotransferase (ALT/SGPT) 53 0-55 U/L Alkaline Phosphatase 80 40-136 U/L Total Protein 6.6 6.4-8.2 GM/DL Albumin 4.2 3.2-4.5 GM/DL My Orders Orders - ISRAEL PRASAD Cbc With Automated Diff (02/12/22 11:01) Comprehensive Metabolic Panel (02/12/22 11:01) Vital Signs/I&O 02/12/22 02/12/22 10:38 13:26 Temp 35.7 35.7 Pulse 64 70 Resp 18 18 B/P (MAP) 113/81 (92) 125/86 Pulse Ox 95 95 O2 Delivery Room Air Room Air Capillary Refill : Less Than 3 Seconds Blood Pressure Mean: 92 Point of Care Testing Finger Stick Blood Glucose: 102 Blood Glucose Action Taken: DR PEACE Departure Communication (PCP) Patient was found to be hypoglycemic. Drank orange juice and a meal here. Significant improvement after 2 hours of observation. Blood sugar over 200. Patient states she is feeling much better right before arrival. Patient without any current symptoms at this time. Will be discharged with strict follow-up with her blood sugar at home. Impression Primary Impression: Hypoglycemia Disposition: HOME, SELF-CARE Condition: Stable Departure-Patient Inst. Decision time for Depature: 13:01 Referrals: [facility] (PCP/Family) Primary Care Physician Patient Instructions: Low Blood Sugar, Adult (DC) Add. Discharge Instructions: Continue monitoring blood sugar at home. All discharge instructions reviewed with patient and/or family. Voiced understanding. ISRAEL PRASAD February 12, 2022 11:05
[2022-02-12 11:07] LABS: BASOPHILS # (AUTO) 0.1 10^3/uL (0.0-0.1); BASOPHILS % (AUTO) 1 % (0-10); EOSINOPHILS # (AUTO) 0.3 10^3/uL (0.0-0.3); EOSINOPHILS % (AUTO) 3 % (0-10); HEMATOCRIT 48 % (35-52); HEMOGLOBIN 16.3 g/dL (11.5-16.0); LYMPHOCYTES # (AUTO) 3.3 10^3/uL (1.0-4.0); LYMPHOCYTES % (AUTO) 31 % (12-44); MEAN CORPUSCULAR HEMOGLOBIN 32 pg (25-34); MEAN CORPUSCULAR HGB CONC 34 g/dL (32-36); MEAN CORPUSCULAR VOLUME 93 fL (80-99); MEAN PLATELET VOLUME 11.3 fL (9.0-12.2); MONOCYTES # (AUTO) 0.6 10^3/uL (0.0-1.0); MONOCYTES % (AUTO) 6 % (0-12); NEUTROPHILS # (AUTO) 6.4 10^3/uL (1.8-7.8); NEUTROPHILS % (AUTO) 60 % (42-75); PLATELET COUNT 171 10^3/uL (130-400); WHITE BLOOD COUNT 10.6 10^3/uL (4.3-11.0)
[2022-02-12 11:16] LABS: ALBUMIN 4.2 GM/DL (3.2-4.5)
[2022-02-12 11:17] LABS: CALCIUM 9.4 MG/DL (8.5-10.1)
[2022-02-12 11:18] LABS: TOTAL PROTEIN 6.6 GM/DL (6.4-8.2)
[2022-02-12 11:20] LABS: BILIRUBIN,TOTAL 0.6 MG/DL (0.1-1.0)
[2022-02-12 11:22] LABS: CREATININE SERUM 0.79 MG/DL (0.60-1.30)
[2022-02-12 13:26] VITALS: BP 125/86
== END 2022-02-12 13:26 | disposition home or self-care (01) ==
LOC: EDUNIT# 10:36 → ER 10:37
DX: E11.649 Type 2 diabetes mellitus with hypoglycemia without coma (principal); F17.210 Nicotine dependence, cigarettes, uncomplicated; Z79.4 Long term (current) use of insulin
CPT/HCPCS: 36415; 80053; 82947; 85025

== ENCOUNTER → 2022-11-30 | Outpatient (CLI) | payer MEDICARE, MEDICAID ==
[~2022-11-30] MED LIST changes: +CATHETER FLUSH 10 ML SYR IVP PRN
--- NOTE | 2022-12-01 08:48 | Diagnostic Imaging Report ---
Indication: Pulmonary nodule, initial staging. Serum blood glucose level at time of ejection is 78 mg/dL. Patient was administered 10.4 mCi F-18 FDG intravenously in the right wrist and PET imaging was performed from the top of skull to mid thighs. In addition, noncontrast CT was performed for attenuation correction and anatomic correlation. No prior imaging is available for comparison. There is normal symmetric activity throughout the brain. Soft tissues of the neck are unremarkable. No pulmonary hypermetabolism is seen. No mediastinal or hilar hypermetabolic lymphadenopathy is detected. There is physiologic activity throughout the gastrointestinal and genitourinary tract of the abdomen and pelvis. No suspicious areas of hypermetabolism are identified. IMPRESSION: Essentially unremarkable PET/CT study. No suspicious regions of hypermetabolism are identified. Dictated by: Dictated on workstation # [id number]
== END ==
LOC: RAD 09:15
PROVIDERS: ATTEND Nurse Practitioner Family
DX: R91.8 Other nonspecific abnormal finding of lung field (principal)
CPT/HCPCS: 78815; 82947; A9552

== ENCOUNTER → 2023-07-04 | Outpatient (CLI) | payer MEDICARE, MEDICAID ==
[~2023-07-04] VITALS: Ht 165 cm; Wt 63.0 kg
[~2023-07-04] MED LIST changes: -INSU100I29 SQ; +INSU100I30 SQ; +REGADENOSON 0.4 MG/5 ML SYR IV ONE
[2023-07-04 09:41] VITALS: BP 147/90
[2023-07-04 09:49] VITALS: BP 148/79
--- NOTE | 2023-07-04 13:05 | Cardiology Stress Test Report ---
Stress Test Report Date of Procedure/Referring: Date of Procedure: Jul 04, 2023 PCP Lorena Ibrahim Aprn Admitting Physician Admitting Physician: Attending Physician: Akosua Yanes MD Baseline Heart Rate: 66 Baseline Blood Pressure: Blood Pressure Systolic: 148 Blood Pressure Diastolic: 79 Baseline Vitals Vital Signs Date Time Temp Pulse Resp B/P (MAP) Pulse Ox O2 Delivery O2 Flow Rate FiO2 07/04/23 09:41 72 147/90 (109) Baseline EKG: Baseline EKG: NSR Summary After explaining the procedure to the patient, she signed a consent and then brought to the stress nuclear laboratory. Patient received 0.4 mg Lexiscan for stress test, ECG, heart rate and blood pressure were monitored continuously. Resting and stress dose of radio tracer were injected, imaging was acquired and reviewed in short axis, horizontal long axis and vertical long axis views. TID: 0.99 SSS: 1 SDS: 1 EF: 56 Patient was unable to exercise beyond 5 minutes and 54 seconds on standard Javed protocol achieving 70% of maximal expected heart rate, test was terminated and converted to Lexiscan Myoview stress test Patient tolerated Lexiscan well No significant ischemia or infarction noted on SPECT images Normal left ventricular size, ejection fraction 56% CC BASSAM Ramon BASHAR J MD Jul 04, 2023 13:05
== END ==
LOC: CARD 07:44
PROVIDERS: ATTEND Internal Medicine Cardiovascular Disease
DX: I25.10 Atherosclerotic heart disease of native coronary artery without angina pectoris (principal); R06.09 Other forms of dyspnea
CPT/HCPCS: 78452; 93017; A9502; C8929; 93306

== ENCOUNTER 2023-07-27 20:24 | Emergency (ER) | payer MEDICARE, MEDICAID ==
[~2023-07-27] VITALS: Ht 165.1 cm; Wt 63.5 kg
[~2023-07-27 20:24] MED LIST changes: -CATHETER FLUSH 10 ML SYR IVP PRN; -REGADENOSON 0.4 MG/5 ML SYR IV ONE
--- NOTE | 2023-07-27 20:49 | ED General ---
General Chief Complaint: Glucose Problems Stated Complaint: LOW BP Nursing Triage Note: PT AMB TO RM 10 WITH CC OF LOW GLUCOSE. PT STATES THAT HER BLOOD SUGAR WAS 45 TWO HOURS AGO. PT DRANK CHOCOLATE MILK AND JUICE TO RAISE BLOOD SUGAR. PT IS UNSURE IF SHE IS TYPE 1 OR 2 DIABETIC. Source of Information: Patient Exam Limitations: No Limitations History of Present Illness Date Seen by Provider: Jul 27, 2023 Time Seen by Provider: 20:46 Initial Comments Patient is a 62-year-old female who presents to the ED for low blood sugar. History of type 1 diabetes, hypertension, coronary artery disease who presents to ED for glucometer reading low. Patient states her glucometer was reading low. She drank juice initially after the initial read. She states her glucometer read low again end up drinking juice again as well as chocolate milk immediately came to ED. She had no symptoms during this episode of low blood sugar. She is on regular insulin and long-acting. She states she did get her neurotransmitter glucometer changed out today. She denies of any chest pain, shortness of breath, nausea, vomiting, diarrhea, urinary symptoms. Allergies and Home Medications Allergies Coded Allergies: Tetanus Vaccines and Toxoid (Verified Adverse Reaction, Unknown, 05/25/14) ciprofloxacin (Verified Adverse Reaction, Unknown, 05/25/14) lovastatin (Verified Adverse Reaction, Unknown, 07/10/13) Patient Home Medication List Home Medication List Reviewed: Yes Albuterol Sulfate (Proventil Hfa) 6.7 Gm Hfa.aer.ad, 2 PUFF INH Q6H PRN for SHORTNESS OF BREATH, (Reported) Entered as Reported by: ANITRA LUNDBERG on 04/07/21 1258 Amlodipine Besylate (Amlodipine Besylate) 5 Mg Tablet, 5 MG PO DAILY, (Reported) Entered as Reported by: ANITRA LUNDBERG on 04/07/21 1258 Aspirin (Aspirin EC) 81 Mg Tablet.dr, 81 MG PO DAILY, (Reported) Entered as Reported by: ANITRA LUNDBERG on 04/07/21 1258 Carvedilol (Carvedilol) 25 Mg Tablet, 25 MG PO BID, (Reported) Entered as Reported by: ATA TILLMAN on 06/25/15 1236 Cholecalciferol (Vitamin D3) (Vitamin D3) 25 Mcg Tablet, 50 MCG PO HS, (Reported) Entered as Reported by: ANITRA LUNDBERG on 04/07/21 1258 Clonazepam (Clonazepam) 1 Mg Tablet, 1 MG PO HS, (Reported) Entered as Reported by: ANITRA LUNDBERG on 04/07/21 1258 Cyclobenzaprine HCl (Cyclobenzaprine HCl) 10 Mg Tablet, 10 MG PO Q8H PRN for SPASMS, (Reported) Entered as Reported by: ANITRA LUNDBERG on 04/07/21 1258 Insulin Detemir (Levemir Flextouch) 100 Unit/1 Ml Insuln.pen, 25 UNITS SQ BID, (Reported) Entered as Reported by: ATA TILLMAN on 06/25/15 1236 Levothyroxine Sodium (Levothyroxine Sodium) 50 Mcg Tablet, 50 MCG PO DAILY, (Reported) Entered as Reported by: ANITRA LUNDBERG on 04/07/21 1258 Lisinopril (Lisinopril) 40 Mg Tablet, 40 MG PO HS, (Reported) Entered as Reported by: ANITRA LUNDBERG on 04/07/21 1258 Mirabegron (Myrbetriq) 25 Mg Tab.er.24h, 25 MG PO DAILY, (Reported) Entered as Reported by: ANITRA LUNDBERG on 04/07/21 1258 Naproxen (Naproxen) 500 Mg Tablet, 500 MG PO BID PRN for PAIN-MILD (1-4), (Reported) Entered as Reported by: ANITRA LUNDBERG on 04/07/21 1258 Tramadol HCl (Tramadol HCl) 50 Mg Tablet, 50 MG PO Q4H PRN for PAIN-MODERATE (5- 7), (Reported) Entered as Reported by: ANITRA LUNDBERG on 04/07/21 1258 Valbenazine Tosylate (Ingrezza) 80 Mg Capsule, 80 MG PO HS, (Reported) Entered as Reported by: ANITRA LUNDBERG on 04/07/21 1258 Vortioxetine Hydrobromide (Trintellix) 20 Mg Tablet, 20 MG PO DAILY, (Reported) Entered as Reported by: ATA TILLMAN on 06/25/15 1245 Review of Systems Review of Systems Constitutional: No chills EENTM: No ear pain, No blurred vision, No double vision Respiratory: No cough, No dyspnea on exertion Cardiovascular: No chest pain Gastrointestinal: No abdominal pain, No diarrhea, No nausea, No vomiting Genitourinary: No decreased output, No discharge Musculoskeletal: No back pain, No joint pain Skin: No see HPI, No change in color, No change in hair/nails All Other Systems Reviewed Negative Unless Noted: Yes Past Ygqxppy-Pzpgqd-Omymcq Hx Patient Social History Tobacco Use?: Yes Substance use?: No Alcohol Use?: No Immunizations Up To Date Tetanus Booster (TDap): Unknown PED Vaccines UTD: Yes First/Initial COVID19 Vaccinat: FEBRUARY 2021 Second COVID19 Vaccination Ricardo: MARCH 2021 Third COVID19 Vaccination Date: FEBRUARY 2021 Seasonal Allergies Seasonal Allergies: No Past Medical History Surgery/Hospitalization HX: CARDIAC CATH WITH STENT X 1BILATERAL TUBAL LIGATION, HX OF AMI, CHF, DIABETIC TYPE I Surgeries: Yes Cardiac, Coronary Stent, Gallbladder, Orthopedic, Tubal Ligation Respiratory: Yes Pneumonia, COPD Cardiac: Yes (PRE-ECLAMPSIA, CHF) Hypertension Neurological: Yes (Borrego's palsy, tardive dyskinesia) Stroke Reproductive Disorders: No (no menses this yr; very irregular for yrs) Female Reproductive Disorders: Endometriosis Sexually Transmitted Disease: No HIV/AIDS: No Gastrointestinal: No Musculoskeletal: No (collar bone) Fractures Endocrine: Yes (Type II) Diabetes, Insulin dep HEENT: No Loss of Vision: Denies Hearing Impairment: Denies Cancer: No Psychosocial: Yes ("hate Trazadone so use Marijuana") Sleep Difficulties, Anxiety, Depression Integumentary: No Blood Disorders: No Adverse Reaction/Blood Tranf: No Family Medical History Cardiovascular disease 19 FATHER G8 BROTHER G8 SISTER FH: multiple myeloma Physical Exam Vital Signs Vital Signs - First Documented 07/27/23 20:33 Pulse 82 B/P (MAP) 139/92 (108) Pulse Ox 95 O2 Delivery Room Air Capillary Refill : Height, Weight, BMI Height: 5'5.00" Weight: 154lbs. 8.0oz. [id number]; 23.00 BMI Method:Stated General Appearance: No Apparent Distress, WD/WN Eyes: Bilateral Eye Normal Inspection, Bilateral Eye PERRL, Bilateral Eye EOMI HEENT: PERRL/EOMI, TMs Normal, Normal ENT Inspection, Pharynx Normal Neck: Full Range of Motion, Normal Inspection, Non Tender, Supple Respiratory: Chest Non Tender, Lungs Clear, Normal Breath Sounds, No Accessory Muscle Use, No Respiratory Distress Cardiovascular: Regular Rate, Rhythm, No Edema, No Gallop, No JVD, No Murmur Gastrointestinal: Normal Bowel Sounds, No Organomegaly, No Pulsatile Mass, Non Tender Extremity: Normal Capillary Refill, Normal Inspection, Normal Range of Motion, Non Tender Neurologic/Psychiatric: Alert, Oriented x3, No Motor/Sensory Deficits, Normal Mood/Affect, coater helper II-XII Norm as Tested Skin: Normal Color, Warm/Dry Progress/Results/Core Measures Suspected Sepsis SIRS Temperature: Pulse: 82 Respiratory Rate: Laboratory Tests 07/27/23 20:43: White Blood Count 8.4 Blood Pressure 139 /92 Mean: 108 Laboratory Tests 07/27/23 20:43: Creatinine 0.74, Platelet Count 186, Total Bilirubin 0.2 Results/Orders Lab Results Laboratory Tests Test 07/27/23 20:41 07/27/23 20:43 07/27/23 21:43 Range/Units Glucometer 277 H 247 H 70-110 MG/DL White Blood Count 8.4 4.3-11.0 10^3/uL Red Blood Count 4.68 3.80-5.11 10^6/uL Hemoglobin 15.0 11.5-16.0 g/dL Hematocrit 44 35-52 % Mean Corpuscular Volume 93 80-99 fL Mean Corpuscular Hemoglobin 32 25-34 pg Mean Corpuscular Hemoglobin Concent 34 32-36 g/dL Red Cell Distribution Width 13.2 10.0-14.5 % Platelet Count 186 130-400 10^3/uL Mean Platelet Volume 10.9 9.0-12.2 fL Immature Granulocyte % (Auto) 0 % Neutrophils (%) (Auto) 58 42-75 % Lymphocytes (%) (Auto) 32 12-44 % Monocytes (%) (Auto) 8 0-12 % Eosinophils (%) (Auto) 2 0-10 % Basophils (%) (Auto) 1 0-10 % Neutrophils # (Auto) 4.8 1.8-7.8 10^3/uL Lymphocytes # (Auto) 2.7 1.0-4.0 10^3/uL Monocytes # (Auto) 0.6 0.0-1.0 10^3/uL Eosinophils # (Auto) 0.2 0.0-0.3 10^3/uL Basophils # (Auto) 0.1 0.0-0.1 10^3/uL Immature Granulocyte # (Auto) 0.0 0.0-0.1 10^3/uL Sodium Level 138 135-145 MMOL/L Potassium Level 4.0 3.6-5.0 MMOL/L Chloride Level 104 98-107 MMOL/L Carbon Dioxide Level 24 21-32 MMOL/L Anion Gap 10 5-14 MMOL/L Blood Urea Nitrogen 9 7-18 MG/DL Creatinine 0.74 0.60-1.30 MG/DL Estimat Glomerular Filtration Rate 91 BUN/Creatinine Ratio 12 Glucose Level 280 H 70-105 MG/DL Calcium Level 8.8 8.5-10.1 MG/DL Corrected Calcium 8.8 8.5-10.1 MG/DL Total Bilirubin 0.2 0.1-1.0 MG/DL Aspartate Amino Transf (AST/SGOT) 46 H 5-34 U/L Alanine Aminotransferase (ALT/SGPT) 71 H 0-55 U/L Alkaline Phosphatase 87 40-136 U/L Total Protein 6.2 L 6.4-8.2 GM/DL Albumin 4.0 3.2-4.5 GM/DL Lipase 9 8-78 U/L My Orders Orders - ISRAEL PRASAD Accucheck Stat ONCE (07/27/23 20:38) Cbc And Automated Diff (07/27/23 20:44) Comprehensive Metabolic Panel (07/27/23 20:44) Lipase (07/27/23 20:44) Vital Signs/I&O 07/27/23 20:33 Pulse 82 B/P (MAP) 139/92 (108) Pulse Ox 95 O2 Delivery Room Air Capillary Refill : Blood Pressure Mean: 108 Point of Care Testing Finger Stick Blood Glucose: 277 Blood Glucose Action Taken: notified Departure Communication (PCP) Patient with a history of diabetes presents to ED concern for hypoglycemia. Patient's glucometer meter was reading low. Patient states that she had the neurotransmitter replaced today. on arrival blood sugar 277. She states she has been asymptomatic today. Typically when her blood sugar runs low she becomes dizzy. Did obtain general lab work here. Patient lab work was grossly unremarkable. Blood sugar was 280. Patient was observed here in the ED with no acute changes. Patient blood sugar did drop down to 244 but still remain high. Patient will be discharged. She will follow-up with the clinic in the morning. If any worsening symptoms return back to ED evaluation. Feared condition ruled out. Impression Primary Impression: Hyperglycemia Disposition: 01 HOME, SELF-CARE Condition: Stable Departure-Patient Inst. Referrals: HAO CAT APRN (PCP/Family) Primary Care Physician Patient Instructions: Type 2 Diabetes (DC) Add. Discharge Instructions: Continue monitoring your blood sugar. If any symptoms change to return back to ED. All discharge instructions reviewed with patient and/or family. Voiced understanding. ISRAEL PRASAD Jul 27, 2023 20:48
[2023-07-27 20:53] LABS: BASOPHILS # (AUTO) 0.1 10^3/uL (0.0-0.1); BASOPHILS % (AUTO) 1 % (0-10); EOSINOPHILS # (AUTO) 0.2 10^3/uL (0.0-0.3); EOSINOPHILS % (AUTO) 2 % (0-10); HEMATOCRIT 44 % (35-52); LYMPHOCYTES # (AUTO) 2.7 10^3/uL (1.0-4.0); LYMPHOCYTES % (AUTO) 32 % (12-44); MEAN CORPUSCULAR HEMOGLOBIN 32 pg (25-34); MEAN CORPUSCULAR HGB CONC 34 g/dL (32-36); MEAN CORPUSCULAR VOLUME 93 fL (80-99); MEAN PLATELET VOLUME 10.9 fL (9.0-12.2); MONOCYTES # (AUTO) 0.6 10^3/uL (0.0-1.0); MONOCYTES % (AUTO) 8 % (0-12); NEUTROPHILS # (AUTO) 4.8 10^3/uL (1.8-7.8); NEUTROPHILS % (AUTO) 58 % (42-75); PLATELET COUNT 186 10^3/uL (130-400); WHITE BLOOD COUNT 8.4 10^3/uL (4.3-11.0)
[2023-07-27 21:20] LABS: BILIRUBIN,TOTAL 0.2 MG/DL (0.1-1.0); CALCIUM 8.8 MG/DL (8.5-10.1); CREATININE SERUM 0.74 MG/DL (0.60-1.30); TOTAL PROTEIN 6.2 GM/DL (6.4-8.2)
[2023-07-27 22:10] VITALS: BP 136/80
== END 2023-07-27 22:14 | disposition home or self-care (01) ==
LOC: EDUNIT# 20:24 → ER 20:26
DX: E11.65 Type 2 diabetes mellitus with hyperglycemia (principal); Z79.4 Long term (current) use of insulin
CPT/HCPCS: 36415; 80053; 82947; 83690; 85025